=== PATIENT | female | born 1965 | race Caucasian/White ===

== ENCOUNTER 2018-06-05 07:37 | Outpatient (RCR) | payer BC, SELFPAY ==
--- NOTE | 2018-06-05 08:41 | PTTR_ITS ---
DATE: 06/05/18 SUBJECTIVE: Reny reports overall 50% improvement in R shoulder dysfunction since start of PT. Positive changes include ability to mange her movement pattern with controlled movement and better posture, she overall feel stronger. However, she continues to experience a catch, when reaching to the side or behind her back quickly, and the catch generates pain for the remainder of her day. Always has pain relief with PT mobilization, but short lived. She has been compliantly completing a daily R shoulder girdle stabilization program, as instructed. OBJECTIVE: KX applied to all codes N/A Manual therapy: ([id number]). R GH joint mobilizations all planes, with focus of AP into quadrant, and IR end ranges, grade 4++ Scapulothoracic mobilization all planes, with focus of distraction and down rotation. Re-assessment R shoulder: Strength: Flexion 4+/5, abduction 4-4+/5, IR/ER 5/5 at 0* abduction, IR/ER at 45 * abduction 4+/5 no pain. Improved scapular stability with [facility] strength testing compared to prior sessions. ROM: Full, but with controlled, careful movement into abduction to reduce impingement. Special Testing: + Newman Alonzo and Neer Impingement testing. + lift off, secondary to impingement pain. Posture: Scoliotic curvature, contributing to R thoracic rotation, R thoracic convexity and disruption scapular thoracic alignment encouraging winging of R scapular and upward rotation. Direct treatment time: 20 minutes Total treatment time: 20 minutes Assessment: Reny has plateaued with PT treatment, for management of R shoulder pain. She began treatment on 03/27/18, with 2x/week visits, with some interruption of vacation, and then weaning her down to 1x/week as she improved. She presents with clinical signs and symptoms consistent with R subacromial impingement, with suspicion of bone spur pathology, negatively influenced by a scoliotic curvature, impairing arthrokinematics of the R GH joint. She has responded favorably to strengthening and mobilization, mainly due to improved awareness of her shoulder movement pattern, and intrinsic utilization. However, she continues to have a significant catch and pain with quick movements in an impingement movement pattern. She has reached her end point result with PT, and I feel that ortho consult would be informative for her, to determine if further intervention is appropriate. If she did not have a scoliotic deformity, her overall response to PT management, would have been more successful. Plan: Ortho consultation, with Dr. Dodge, at the [facility]. Hold from PT, utilizing HEP for strengthening. Will be seen on a PRN basis, shoulder exacerbation. Patient to call an update me on outcome of ortho consultation.
== END 2018-06-22 23:59 | disposition home or self-care (01) ==
LOC: PT 07:37
PROVIDERS: PCP Nurse Practitioner; Referring Provider Nurse Practitioner; Visit Provider Nurse Practitioner
DX: M25.511 Pain in right shoulder (principal); M41.9 Scoliosis, unspecified
CPT/HCPCS: 97140

== ENCOUNTER → 2018-06-15 01:23 | Outpatient (CLI) | payer BC, SELFPAY ==
--- NOTE | 2018-06-15 08:55 | DI.REPORT_ITS ---
SYMPTOM/DIAGNOSIS: ? TEAR OF RT ROTATOR CUFF M75.101, SUBACROMIAL IMPINGEMENT RIGHT SHOULDER MRI: 06/15 MRI examination of the shoulder was performed according to the usual protocol. Note is made of moderate hypertrophic degenerative changes of the acromioclavicular joint. There is a small quantity of fluid in the subacromial bursa. A small acromial inferior spur appears to be present. There is abnormal signal in supraspinatus tendon consistent with tendinosis with a question of small distal tendon partial thickness tear. No full thickness tear or retraction seen. Infraspinatus tendo also shows some abnormal signal consistent with tendinosis without evidence of a tear. Remainder of the rotator cuff appears intact. Biceps tendon and anchor are unremarkable. Glenoid labrum appears grossly intact as visualized. CONCLUSION: Findings consistent with supraspinatus and infraspinatus tendinosis , possible small partial thickness supraspinatus tendon tear noted.
== END ==
PROVIDERS: PCP Nurse Practitioner; Visit Provider Specialist
DX: M75.41 Impingement syndrome of right shoulder (principal); M75.81 Other shoulder lesions, right shoulder
CPT/HCPCS: 73221

== ENCOUNTER 2018-08-06 17:24 | Emergency (ER) | payer BC, SELFPAY ==
[2018-08-06 17:35] VITALS: BP 135/80; PULSE 70; RESP 16; TEMP 37; O2SAT 100
[2018-08-06] MEDS: Ketorolac 30 MG/ML VIAL IM (18:44)
[2018-08-06] MEDS: Dexamethasone 4 MG TAB 10 MG PO (18:44)
[2018-08-06] MEDS: Lidocaine 5% Patch 1 PATCH TP (18:45)
--- NOTE | 2018-08-06 19:01 | W.ED.GENAD ---
Discharge Plan Disposition Patient Disposition: HOME Condition: Good Discharge Details Chief Complaint: Orthopedic Clinical Impression: Acute pain of right shoulder Primary Care Provider: Erika Adams ED Provider: Teto Allen Home Meds and New Rx's Prescriptions: New acetaminophen [Mapap Extra Strength] 500 MG tablet 1,000 mg PO Q6H 5 Days Qty: 60 RF: 0 ibuprofen [Motrin IB] 200 MG tablet 800 mg PO Q6H 5 Days Qty: 80 RF: 0 lidocaine [Lidoderm] 1 PATCH patch 1 patch Topical Q24H Qty: 4 RF: 0 No Action acetaminophen [Tylenol Arthritis Pain] 650 mg Tablet Extended Release 650 mg PO PRN PRNRF: 0 ibuprofen 200 mg Tablet 400 mg PO PRN PRNRF: 0 Discharge Instructions Instructions: Shoulder Pain (ED) Additional Instructions: Please follow-up with your orthopedic surgeon as soon as possible for reassessment. If you notice any worsening of your symptoms, or any new symptoms such as vomiting, diarrhea, fever, chills, shortness of breath, chest pain, numbness, weakness, or fainting , please return immediately to the emergency department for reevaluation. Please follow up with your primary care provider as soon as possible for reassessment and reevaluation. As always, it was a pleasure participating in your medical care today. Referrals: Erika Adams [Primary Care Provider] - Discharge Data Discharge Date/Time-TO BE ENTERED AT DEPARTURE: 08/06/18 19:39 Medical Decision Making This is a 52-year-old female with no significant past medical history except for multiple orthopedic components causing pain in her right shoulder including bone spurs, arthritis, and a previous rotator cuff injury. She has had a recent MRI. She does have orthopedic surgery with Dr. Dodge coming up later this month. Over the last few days she has been in positions that has seemed to worsen her symptomatology. She presents tonight for control of the pain. Physical exam demonstrates no significant abnormalities tenderness pretty much all movements. Some minimal reproducible tenderness near the head of the humerus itself, but no pain out of portion suggesting fracture. No laxity, no signs of deformity. In no history suggestive of any acute fracture. The patient's pain is certainly chronic in nature, with a small exacerbation. There appears to be no red flags of recent injury, or change in the nature of her pain just the severity. I did discuss with the patient potential imaging however I feel that this is unnecessary and unwarranted at this time. Family does not want any additional imaging at this time. We did give the patient Toradol, Lidoderm patch, and Tylenol. She has had some improvement of her symptoms with this. EKG was ordered and shows no evidence of acute STEMI or abnormality. Likelihood of a cardiac etiology for symptoms is extremely low. With mild improvement of her symptoms, no acute component in her history, and no red flags on exam or history I do feel that she can be safely discharged home with close follow-up with her orthopedic surgeon Dr. Dodge in [place], as well as on new regiment of Lidoderm patches, maximum dose Tylenol and Motrin. We discussed red flags which return the patient family understand. I have extensively reviewed the treatment plan and discharge instructions with the patient. I have addressed all patient concerns at this time. The patient was made aware of what symptoms to monitor for that would warrant a return to the emergency department. Discussed the plan with the patient, they demonstrate verbal understanding and agreement with our assessment and plan at this time. 18: 36 Sinus bradycardia, rate 58, intervals normal, no significant ST elevations or depressions, RSR in V1 and V2. No Q waves, no T wave inversions. Normal EKG HPI General Date/Time Provider Initiated Documentation: 08/06/18 17:50. HPI Narrative: This is a 52-year-old female with a past medical history of right shoulder orthopedic problems who is being seen and followed by the [facility] in [place]. She has a history of bone spurs, arthritis and rotator cuff injury in this right shoulder. She recently had an MRI, is scheduled to have arthroscopic surgery later this month. The patient states that she had a flight on , and was in the seated position for quite some time, and then over the last few days she has been at her desk typing a lot and has had notable worsening of pain in her right shoulder. She has been taking Tylenol and Motrin but this is apparently improved her symptoms. She has no associated numbness, tingling, weakness, swelling, lower arm pain forearm pain or hand pain. She denies any chest pain or shortness of breath. Symptoms made worse with movement in any direction. His symptoms are improved by nothing. She denies any other complaints at this time. Denies PE risk factors such as recent long car rides, immobilization, recent surgery, prior history of DVT or PE, family history of PE or DVT, morbid obesity, exogenous estrogen and smoking, hemoptysis, history of cancer. She denies any recent surgeries. She denies any IV or illicit drug use. Related Data Home Medications Medication Instructions Recorded Confirmed acetaminophen [Mapap Extra 1,000 mg PO Q6H 5 Days #60 tab 08/06/18 Strength] acetaminophen [Tylenol Arthritis 650 mg PO PRN PRN 08/06/18 08/06/18 Pain] ibuprofen 400 mg PO PRN PRN 08/06/18 08/06/18 ibuprofen [Motrin Ib] 800 mg PO Q6H 5 Days #80 tab 08/06/18 lidocaine [Lidoderm] 1 patch TOPICAL Q24H #4 patch 08/06/18 Previous Rx's Medication Instructions Recorded acetaminophen [Mapap Extra 1,000 mg PO Q6H 5 Days #60 tab 08/06/18 Strength] ibuprofen [Motrin Ib] 800 mg PO Q6H 5 Days #80 tab 08/06/18 lidocaine [Lidoderm] 1 patch TOPICAL Q24H #4 patch 08/06/18 Allergies Allergy/AdvReac Type Severity Reaction Status Date / Time Sulfa (Sulfonamide AdvReac Intermediate Diarrhea Unverified 08/06/18 17:40 Antibiotics) General Stated Complaint: Orthopedic DARREN: 3 Review of Systems Review of Systems All systems reviewed & are unremarkable except as noted in HPI and below PFSH Social History Smoking/Tobacco Use Status: Never Exam Narrative Exam Narrative: 1.Const: Well-nourished, Well-developed, appearing stated age 2.Eyes: PERRL, no conjunctival injection, and symmetrical lids. 3.ENT: Atraumatic external nose and ears. Moist MM. Neck: Symmetric, trachea midline, No thyromegaly. 4.CVS: +S1/S2, No murmurs or gallops. Peripheral pulses 2+ and equal in all extremities. Brisk capillary refill in all extremities. 5.RESP: Unlabored respiratory effort. Clear to auscultation bilaterally. No wheezes rales or rhonchi 6.GI: Soft, Nontender/Nondistended, No hepatosplenomegaly. No guarding or rebound. 7.MSK: Normocephalic/Atraumatic, Extremities w/o deformity. No cyanosis or clubbing. The patient's right shoulder demonstrates normal movement in all directions however pain is worsened with every single direction of movement including abduction, abduction, internal and external rotation, flexion extension sensation is intact, normal muscle strength. Some movements are limited secondary to pain however strength is 5 out of 5 in all components of the no signs of swelling, edema, or signs of clot. No significant crepitus. No signs of deformity or dislocation. 8.Skin: Warm, Dry. No rashes or lesions. 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 Sensation grossly intact, no focal neurologic deficits. 10.Psych: (AAO) x3. Appropriate mood and affect Course Vital Signs Temperature 37 C 08/06/18 17:35 Pulse 70 08/06/18 17:35 Respiratory Rate 16 08/06/18 17:35 Blood Pressure 135/80 08/06/18 17:35 Pulse Oximetry 100 08/06/18 17:35 Temperature 37 C 08/06/18 17:35 Temperature Source Temporal Artery Scan 08/06/18 17:35 Pulse 70 08/06/18 17:35 Respiratory Rate 16 08/06/18 17:35 Respiratory Effort 08/06/18 17:46 Blood Pressure 135/80 08/06/18 17:35 Blood Pressure Position Sitting 08/06/18 17:35 Pulse Oximetry 100 08/06/18 17:35 Oxygen Delivery Method Room Air 08/06/18 17:35 Oxygen Flow Rate 0 08/06/18 17:35 Pain Level 10 08/06/18 17:47
== END 2018-08-06 19:39 | disposition home or self-care (01) ==
PROVIDERS: Emergency Provider Student in an Organized Health Care Education/Training Program; PCP Nurse Practitioner
DX: M25.511 Pain in right shoulder (principal)
CPT/HCPCS: 93005; 96372; 99284; 93010; 99283; J1885; J8540

== ENCOUNTER 2019-03-08 01:17 | Outpatient (CLI) | payer BC, SELFPAY ==
--- NOTE | 2019-03-08 07:55 | DI.MAMMO_ITS ---
SYMPTOM/DIAGNOSIS: SCREENING, Z12.39 MAMMOGRAMS: Mammograms were interpreted according to the usual protocol including computer analysis with CAD system, tomosynthesis and C view imaging. Comparison is made with exams from [id number]. The breasts are composed of heterogeneously dense fibroglandular tissue, breast density, category C. No suspicious masses or suspicious microcalcifications are seen. There has been no significant change. IMPRESSION: Category 1, negative mammogram. Yearly screening mammography is recommended. [facility] ASSESSMENT OF FINDINGS: Negative. Category 1. Patient will receive a letter notifying them of these results. Bi-RADS category C. The breasts are heterogeneously dense, which may obscure small masses.
== END 2019-03-08 01:37 ==
PROVIDERS: PCP Nurse Practitioner; Visit Provider Nurse Practitioner
DX: Z12.31 Encounter for screening mammogram for malignant neoplasm of breast (principal)
CPT/HCPCS: 77063; 77067

== ENCOUNTER 2020-08-26 08:26 | Outpatient (REF) | payer BC, SELFPAY ==
[2020-08-26 19:59] LABS: ALT 29 U/L (14-59); AST 20 U/L (15-37); Albumin 3.9 g/dL (3.4-5.0); Alkaline Phosphatase 60 U/L (46-116); Anion Gap 8.1 mmol/L (3-11); BUN 9 mg/dL (7-18); CO2 27.9 mmol/L (21.0-32.0); CREATININE 0.82 mg/dL (0.55-1.02); Calcium 8.7 mg/dL (8.5-10.1); Calculated LDL 84 mg/dL (<100); Chloride 107 mmol/L (98-107); Cholesterol 183 mg/dL (<200); Glucose 89 mg/dL (74-106); HDL Cholesterol 91 mg/dL (40-60); Potassium 4.2 mmol/L (3.5-5.1); Sodium 143 mmol/L (136-145); TSH (W/Ref FT4) 1.38 uIU/mL (0.36-3.74); Total Protein 6.7 g/dL (6.4-8.2); Triglyceride 40 mg/dL (<150)
== END 2020-08-26 08:46 ==
LOC: NCHCN 08:26
PROVIDERS: PCP Nurse Practitioner; Visit Provider Nurse Practitioner
DX: Z00.00 Encounter for general adult medical examination without abnormal findings (principal)
CPT/HCPCS: 80053; 80061; 84443

== ENCOUNTER 2020-09-21 01:20 | Outpatient (CLI) | payer BC, SELFPAY ==
--- NOTE | 2020-09-21 | DI.MAMMO_ITS ---
EXAM: MAMMO SCREENING CLINICAL HISTORY: SCREENING, Z12.39. TECHNIQUE: Bilateral full field digital CC and MLO mammographic images were obtained with 3D tomosyn thesis and utilizing computer aided detection (CAD). COMPARISON: Prior mammograms dating back to 2013, the most recent being February 2009. Prior breast ultr asound January 2009 was reviewed. FINDINGS: Fibroglandular tissue is dense, decreasing sensitivity of the mammogram for finding hidden underlying lesions. There are no new dominant masses nor malignant appearing microcalcification groups. A group of microc alcifications posteriorly in the right breast is unchanged from prior studies. There are no new becki gnant appearing microcalcification groups. There is no new architectural distortion nor skin thicken ing-retraction. IMPRESSION: Dense bilateral fibroglandular tissue. Stable benign findings. Given the density of this patient's fibroglandular tissue and significant family history I feel would be prudent to perform screening maría ateral breast ultrasound. BI-RADS Category 2 - Benign Findings Density: C Breast density Category C or D implies that the patient has dense breast tissue. Dense breast tissue can make it harder to find cancer on a mammogram. Dense breast tissue is also associated with an incr eased risk of breast cancer. This information about the result of the mammogram report was provided to the patient to raise their awareness. Use this report when you speak with the patient about their risks for breast cancer, which includes their family history. At that time, you may recommend additional screening tests (Ultrasoun d or MRI) as these tests may add significant information. A negative radiographic report should not delay biopsy if a dominant or clinically suspicious mass is present. Up to ten percent of cancers are not identified on mammography. A negative report may reinforce clinical impression. Adenosis and dense breasts may obscure an underlying neoplasm. False positive reports average 6 to 10%. Patient will receive a letter notifying them of these results.
== END 2020-09-21 01:40 ==
PROVIDERS: PCP Nurse Practitioner; Visit Provider Nurse Practitioner
DX: Z12.31 Encounter for screening mammogram for malignant neoplasm of breast (principal); R92.0 Mammographic microcalcification found on diagnostic imaging of breast; Z80.3 Family history of malignant neoplasm of breast
CPT/HCPCS: 77063; 77067

== ENCOUNTER 2020-09-30 02:02 | Outpatient (CLI) | payer BC, SELFPAY ==
--- NOTE | 2020-09-30 | DI.US_ITS ---
EXAM: US BREAST LT COMPLETE CLINICAL HISTORY: INCONCLUSIVE MAMMO,R92.2,FAMILY H/O BREAST CA,Z80.3,BREAST DENSITY C,SCREEN TECHNIQUE: Ultrasound left breast performed using standard protocol. COMPARISON: Recent mammogram was reviewed. FINDINGS: At the 2 o'clock position there is a wider than taller benign-appearing nodule measuring 6 x 3 millim eters which has appearance of a either lymph node or small conglomeration of microcysts. No ominous s olid lesions in all 4 quadrants. Benign lymph nodes are noted in the ipsilateral axilla. IMPRESSION: Benign 6 x 3 millimeter finding as described above at the 2 o'clock position. No ominous solid lesio ns. BI-RADS Category 2 - Benign Findings DATA REPOSITORY:
--- NOTE | 2020-09-30 | DI.US_ITS ---
EXAM: US BREAST RT COMPLETE CLINICAL HISTORY: INCONCLUSIVE MAMMO,R92.2,FAMILY H/O BREAST CA,Z80.3,BREAST DENSITY C,SCREEN TECHNIQUE: Ultrasound right breast performed using standard protocol. COMPARISON: Recent mammogram was reviewed FINDINGS: There is a 5 millimeter microcyst in the retroareolar region. At the 10 o'clock position there is a 4 x 3 millimeter microcysts. No solid lesions seen in all 4 quadrants. No significant axillary darnell opathy.. IMPRESSION: Benign ultrasound findings as described above BI-RADS Category 2 - Benign Findings DATA REPOSITORY:
== END 2020-09-30 02:22 ==
PROVIDERS: PCP Nurse Practitioner; Visit Provider Nurse Practitioner
DX: R92.2 Inconclusive mammogram (principal); N63.21 Unspecified lump in the left breast, upper outer quadrant; Z80.3 Family history of malignant neoplasm of breast; N60.01 Solitary cyst of right breast
CPT/HCPCS: 76642

== ENCOUNTER 2021-09-29 01:06 | Outpatient (CLI) | payer BC, SELFPAY ==
--- NOTE | 2021-09-29 08:51 | DI.MAMMO_ITS ---
Exam(s) MAMMO SCREENING EXAM: MAMMO SCREENING CLINICAL HISTORY: SCREENING FOR BREAST CANCER Z12.39 TECHNIQUE: Bilateral full field digital CC and MLO mammographic images were obtained with 3D tomosyn thesis and utilizing computer aided detection (CAD). COMPARISON: Available for comparison. FINDINGS: Masses/Architectural Distortion: None seen. Microcalcifications: No suspicious pleomorphic-type are seen. Skin Thickening/Nipple Retraction: None. IMPRESSION: 1. No significant interval change with no specific features of malignancy noted. 2. Unless there is more urgent need, screening mammography is recommended, as per [employer] guidelines. BI-RADS Category 1 - Negative Breast Density - Category C - Heterogeneously dense Breast density category C or D implies that the patient has dense breast tissue. Dense breast tissue is very common and is not abnormal but dense breast tissue can make it harder to find cancer on a ma mmogram. Also, dense breast tissue may increase their breast cancer risk. This information about the result of the mammogram report was provided to the patient to raise their awareness. Use this report when you speak with the patient about their risks for breast cancer, which includes their family hist ory. At that time, you may recommend for more screening tests (Ultrasound or MRI) as they might be us eful based on their risk. A negative radiographic report should not delay biopsy if a dominant or clinically suspicious mass is present. Up to ten percent of cancers are not identified on mammography. A negative report may reinforce clinical impression. Adenosis and dense breasts may obscure an underlying neoplasm. False positive reports average 6 to 10%. Patient will receive a letter notifying them of these results.
== END 2021-09-29 01:26 ==
PROVIDERS: PCP Nurse Practitioner; Visit Provider Nurse Practitioner
DX: Z12.31 Encounter for screening mammogram for malignant neoplasm of breast (principal); R92.8 Other abnormal and inconclusive findings on diagnostic imaging of breast
CPT/HCPCS: 77063; 77067

== ENCOUNTER 2021-10-19 11:54 | Observation (INO) | payer BC, SELFPAY ==
[2021-10-19] VITALS (23 sets, daily range): BP systolic 96–114; BP diastolic 57–70; PULSE 76–105; RESP 15–22; TEMP 36.7–39; O2SAT 95–100; BMI 19.0
--- NOTE | 2021-10-19 12:15 | DI.CT_ITS ---
Exam(s) CT ABDOMEN PELVIS W EXAM: CT ABDOMEN PELVIS W INDICATION: RLQ pain, 14 cbc. COMPARISON: CT UPPER ABD WITH CONTRAST (P) from 12/03/2008 TECHNIQUE: FINDINGS: CT examination of the abdomen and pelvis was performed with a bolus infusion of 100 cc of Omnipaque 3 50. Images obtained through the lung bases are unremarkable. The liver is unremarkable in appearance. Gallbladder and bile ducts are CT normal. Pancreas appears normal. Spleen is unremarkable in appearance. Adrenals appear normal. The kidneys are unremarkable with no evidence of hydronephrosis, nephrolithiasis, or renal mass.. Ur inary bladder unremarkable. Abdominal aorta is of normal diameter and no major vascular abnormality is seen. No abdominal wall hernia. No abdominal or pelvic adenopathy. 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 The appendix has a markedly thickened wall and there is marked periappendiceal fat edema and free flu id. No gross perforation but the findings are consistent with an acute appendicitis. Note is also m juan luis of free fluid in the pelvis posteriorly. There are multiple loops of small bowel with thickened wall in the mid abdomen.. No evidence of diverticulitis or bowel obstruction. IMPRESSION: The appearance is consistent with acute appendicitis. No gross abscess or perforation at this time. RADIATION DOSE DELIVERED: 549.58mGy.cm Total DLP 549.58mGy.cm Total DLP 11.68mGy CTDIvol RADIATION OPTIMIZATION: All CT scans at this facility use at least one of these dose optimization te chniques: automated exposure control; mA and/or kV adjustment per patient size (includes targeted exa ms where dose is matched to clinical indication); or iterative reconstruction.
[2021-10-19 12:16] LABS: Abs Immature Grans 0.09 10^3/uL (0.0-0.06); Absolute Basophil Count 0.04 10^3/uL (0.0-0.2); Absolute Eosinophil Count 0.04 10^3/uL (0.0-0.7); Absolute Lymphocyte Count 1.77 10^3/uL (1.2-3.4); Absolute Monocyte Count 0.59 10^3/uL (0.1-0.8); Absolute Neutrophil Count 11.54 10^3/uL (1.2-6.7); Basophils % 0.3; Eosinophils % 0.3; HGB 13.5 g/dL (11.2-15.7); Immature Grans % 0.6; Lymphocytes % 12.6; MCH 29.7 pg (27.0-33.0); MCHC 32.9 % (32.0-36.0); MCV 90.3 fL (80-95); MPV 10.3 fL (8.0-11.0); Monocytes % 4.2; Nucleated RBC 0 %; Platelet Count 299 10^3/uL (130-400); RBC 4.54 10^6/uL (3.93-5.22); RDW 13.1 % (11.7-14.6); RDW-SD 42.9 fL; WBC 14.07 10^3/uL (4.4-10.8)
[2021-10-19 12:18] LABS: Bilirubin Negative (Negative); Blood Trace-intact (Negative); Clarity Clear (Clear); Glucose Negative (Negative); Ketones Negative (Negative); Leukocyte Esterase Trace (Negative); Nitrite Negative (Negative); Urobilinogen 0.2 EU/dL (Up TO 0.2); pH 7.5 (5-8)
[2021-10-19 12:29] LABS: ALT 30 U/L (14-59); AST 23 U/L (15-37); Albumin 3.9 g/dL (3.4-5.0); Alkaline Phosphatase 89 U/L (46-116); Anion Gap 8.2 mmol/L (3-11); BUN 11 mg/dL (7-18); CO2 27.8 mmol/L (21.0-32.0); Calcium 8.7 mg/dL (8.5-10.1); Chloride 101 mmol/L (98-107); Glucose 106 mg/dL (74-106); Lipase 73 U/L (73-393); Potassium 3.5 mmol/L (3.5-5.1); Sodium 137 mmol/L (136-145); Total Protein 7.5 g/dL (6.4-8.2)
--- NOTE | 2021-10-19 12:30 | W.ED.GENAD ---
Discharge Plan Disposition Patient Disposition: [facility] INPATIENT Condition: Serious Discharge Details Chief Complaint: Abd Prob Clinical Impression: Acute appendicitis Primary Care Provider: Erika Adams ED Provider: Ray Blanca Home Meds and New Rx's Prescriptions: No Action Adult 50 Plus Probiotic 4 billion cell capsule 4,000 mmu cells PO DAILY RF: 0 Neuriva Plus 0.85 mg-200 mcg-1.2 mcg tablet,chewable PO RF: 0 polyethylene glycol 3350 17 gram/dose powder 238 g PO ONCE Qty: 238 RF: 0 bisacodyl [Dulcolax (bisacodyl)] 5 mg tablet,delayed release (DR/EC) 5 mg PO ONCE Qty: 4 RF: 0 bisacodyl [Dulcolax (bisacodyl)] 5 mg tablet,delayed release (DR/EC) 5 mg PO ONCE Qty: 4 RF: 0 Metamucil 3.4 gram/5.4 gram powder 1 tsp PO DAILY RF: 0 multivitamin [Daily Multi-Vitamin] Tablet 1 tab PO DAILY RF: 0 Medical Decision Making 55-year-old female presents with right lower quadrant pain that began yesterday evening. Examination is certainly concerning for appendicitis but cannot rule out UTI, pyelonephritis, ovarian cyst, torsion, etc. Plan is to obtain IV access, give IV fluid, she declines any pain medication or antiemetics. Will likely need to obtain imaging whether this be ultrasound or CT White blood cell count of 14.07, total bili of 2.0 LFTs otherwise unremarkable, lipase 73, urinalysis with trace blood, trace leukoesterase, 3-5 red and white cells. Given the right lower quadrant discomfort with leukocytosis will obtain CT of abdomen and pelvis for concern of appendicitis CT positive for uncomplicated appendicitis. Made patient aware of findings. She is now requesting an antiemetic, will provide 1 g of ertapenem as well as 4 mg IV Zofran. Case discussed with Dr. Rodrigez who personally evaluated the patient in the ER. Will admit the patient to her services This documentation was generated using Voiceitation system, please disregard any oddities of phrase or misspellings. Medical Records Medical records reviewed: Yes I reviewed the patient's medical records. Imaging Data Radiologic Study: Attestation: I personally reviewed and interpreted this imaging study as follows: Imaging: X-Ray Radiologist's impression: Exam(s) CT ABDOMEN PELVIS W EXAM: CT ABDOMEN PELVIS W INDICATION: RLQ pain, 14 cbc. COMPARISON: CT UPPER ABD WITH CONTRAST (P) from 12/03/2008 TECHNIQUE: FINDINGS: CT examination of the abdomen and pelvis was performed with a bolus infusion of 100 cc of Omnipaque 350. Images obtained through the lung bases are unremarkable. The liver is unremarkable in appearance. Gallbladder and bile ducts are CT normal. Pancreas appears normal. Spleen is unremarkable in appearance. Adrenals appear normal. The kidneys are unremarkable with no evidence of hydronephrosis, nephrolithiasis, or renal mass.. Urinary bladder unremarkable. Abdominal aorta is of normal diameter and no major vascular abnormality is seen. No abdominal wall hernia. No abdominal or pelvic adenopathy. SULFUR BURNER structures appear intact. The appendix has a markedly thickened wall and there is marked periappendiceal fat edema and free fluid. No gross perforation but the findings are consistent with an acute appendicitis. Note is also made of free fluid in the pelvis posteriorly. There are multiple loops of small bowel with thickened wall in the mid abdomen.. No evidence of diverticulitis or bowel obstruction. IMPRESSION: The appearance is consistent with acute appendicitis. No gross abscess or perforation at this time. Lab Data Lab results reviewed: Yes I reviewed the patient's lab results. Labs: Laboratory Tests Range/Units 10/19/21 10/19/21 10/19/21 12:02 12:02 12:10 WBC (4.4-10.8) 10^3/uL 14.07 H RBC (3.93-5.22) 10^6/uL 4.54 Hgb (11.2-15.7) g/dL 13.5 Hct (36.0-46.0) % 41.0 MCV (80-95) fL 90.3 MCH (27.0-33.0) pg 29.7 MCHC (32.0-36.0) % 32.9 RDW (11.7-14.6) % 13.1 Plt Count (130-400) 10^3/uL 299 MPV (8.0-11.0) fL 10.3 Immature Gran % 0.6 Neutrophils % 82.0 Lymphocytes % 12.6 Monocytes % 4.2 Eosinophils % 0.3 Basophils % 0.3 Nucleated RBC % % 0 Absolute Neutrophils (1.2-6.7) 10^3/uL 11.54 H Absolute Lymphocytes (1.2-3.4) 10^3/uL 1.77 Absolute Monocytes (0.1-0.8) 10^3/uL 0.59 Absolute Eosinophils (0.0-0.7) 10^3/uL 0.04 Absolute Basophils (0.0-0.2) 10^3/uL 0.04 Sodium (136-145) mmol/L 137 Potassium (3.5-5.1) mmol/L 3.5 Chloride (98-107) mmol/L 101 Carbon Dioxide (21.0-32.0) mmol/L 27.8 Anion Gap (3-11) mmol/L 8.2 BUN (7-18) mg/dL 11 Creatinine (0.55-1.02) mg/dL 1.0 Estimated GFR/1.73 m2 (mL/min/1.73m2) 58.00 Glucose (74-106) mg/dL 106 Calcium (8.5-10.1) mg/dL 8.7 Total Bilirubin (0.2-1.0) mg/dL 2.0 H AST (15-37) U/L 23 ALT (14-59) U/L 30 Alkaline Phosphatase (46-116) U/L 89 Total Protein (6.4-8.2) g/dL 7.5 Albumin (3.4-5.0) g/dL 3.9 Lipase (73-393) U/L 73 Urine Color (Yellow) Yellow Urine Clarity (Clear) Clear Urine pH (5-8) 7.5 Ur Specific [place] (1.005-1.025) 1.020 Urine Protein (Negative) mg/dL Negative Urine Ketones (Negative) mg/dL Negative Urine Blood (Negative) Trace-intact H Urine Nitrite (Negative) Negative Urine Bilirubin (Negative) Negative Urine Urobilinogen (Up TO 0.2) EU/dL 0.2 Ur Leukocyte Esterase (Negative) Trace H Urine RBC (0-2) HPF 3-5 H Urine WBC (0-5) HPF 3-5 Ur Epithelial Cells (Negative) HPF Few Urine Crystals (Negative) HPF Negative Urine Bacteria (Negative) HPF Few Urine Casts (Negative) LPF Negative Urine Mucus (Negative) Trace Ur Culture Indicated? No Urine Glucose (Negative) mg/dL Negative HPI General Mode of arrival: ambulatory. Date/Time Provider Initiated Documentation: 10/19/21 12:00. Limitations to Documentation: no limitations. Information obtained by: patient. HPI Narrative: This is a 55-year-old female, past medical history of constipation, hemorrhoids, presents to the ER reporting a right lower quadrant pain that began yesterday evening, constant, aching, sharp at times, moderate currently. She denies any recent illness or travel. Denies bad food exposure. States that she had a piece of toast this morning. Denies any fever, nausea, vomiting, chest pain, shortness of breath, back pain, dysuria, hematuria, vaginal bleeding or discharge, diarrhea. She has not taken any medications for her symptoms. Reports history of ovarian cyst that did feel somewhat similar to this. Reports last menstrual cycle was in July Related Data Home Medications Medication Instructions Recorded Confirmed multivitamin 1 tab PO DAILY 10/02/20 10/19/21 psyllium husk 3.4 gram/5.4 gram 1 tsp PO DAILY 10/02/20 10/19/21 oral powder B6 0.85 mg-folic 200 tab PO 10/04/21 10/05/21 [id number] oral chewable tablet bisacodyl 5 mg tablet,delayed 5 mg PO ONCE #4 tab 10/04/21 10/05/21 release bisacodyl 5 mg tablet,delayed 5 mg PO ONCE #4 tab 10/04/21 10/05/21 release lactobacillus combination no.9 4 4,000 mmu cells PO DAILY 10/04/21 10/19/21 billion cell capsule polyethylene glycol 3350 17 238 g PO ONCE #238 g 10/04/21 10/05/21 gram/dose oral powder Previous Rx's Medication Instructions Recorded bisacodyl 5 mg tablet,delayed 5 mg PO ONCE #4 tab 10/04/21 release bisacodyl 5 mg tablet,delayed 5 mg PO ONCE #4 tab 10/04/21 release polyethylene glycol 3350 17 238 g PO ONCE #238 g 10/04/21 gram/dose oral powder Allergies Allergy/AdvReac Type Severity Reaction Status Date / Time Penicillins Allergy Mild Verified 10/19/21 12:02 Sulfa (Sulfonamide AdvReac Intermediate Diarrhea Unverified 10/19/21 12:02 Antibiotics) General Stated Complaint: Abd Prob DARREN: 3 Review of Systems Constitutional Constitutional: Denies fever(s) and Denies weakness Cardiovascular Cardiovascular: Denies chest pain and Denies dyspnea Respiratory Respiratory: Denies cough and Denies dyspnea Gastrointestinal Gastrointestinal: Reports abdominal pain, Denies nausea and Denies vomiting Genitourinary Genitourinary: Denies hematuria and Denies dysuria Musculoskeletal Musculoskeletal: Denies back pain Integumentary/Breasts Skin/Breast: Denies rash Neurologic Neurologic: Denies weakness PFSH All Active Problems (Updated 10/19/21 @ 13:39 by GUMARO Mccann) Acute appendicitis (Acute) Medical History Constipation Hemorrhoids Impingement syndrome of right shoulder Scoliosis Social History Smoking/Tobacco Use Status: Never Smoking risk assessment performed?: Yes Alcohol Intake: current Alcohol Intake frequency: a few times a week Drug use: Occasionally Substance use type: marijuana Do you feel safe at home: Yes Do you feel safe in your relationship?: Yes Exam Const General: cooperative, healthy appearing, comfortable and no acute distress Orientation: alert and awake HENPR Head: normal to inspection, normocephalic and atraumatic Eyes General: appearance normal, both eyes and all related structures Conjunctivae: conjunctivae normal Neck Neck: normal visual inspection, trachea midline and supple Resp Effort & Inspection: normal respiratory effort and able to speak in complete sentences Auscultation: clear to auscultation bilaterally Cardio Rate: regular rate Rhythm: regular rhythm GI Inspection: normal to inspection Palpation: soft, firm, guarding in the RLQ, no pulsatile masses and tender at McBurney's point and with rebound tenderness Auscultation: normal bowel sounds Back/Spine/Pelvis Back: no CVA tenderness and No back tenderness Skin General skin exam: no rashes or lesions noted Neuro General: patient alert, patient awake, moves all extremities and no focal motor deficits Cognition: normal cognition Speech: speech normal Sensory Exam: no sensory deficits noted Psych Appearance: grossly normal Mental Status: mental status grossly normal Course Vital Signs Vital signs: Vital Signs Temperature 36.9 C 10/19/21 11:59 Pulse 91 H 10/19/21 11:59 Respiratory Rate 16 10/19/21 11:59 Blood Pressure 98/65 L 10/19/21 11:59 Pulse Oximetry 100 10/19/21 11:59 Temperature 36.9 C 10/19/21 11:59 Temperature Source Temporal Artery Scan 10/19/21 11:59 Pulse 91 H 10/19/21 11:59 Respiratory Rate 16 10/19/21 11:59 Respiratory Effort Non-Labored 10/19/21 12:03 Blood Pressure 98/65 L 10/19/21 11:59 Blood Pressure Position Sitting 10/19/21 11:59 Pulse Oximetry 100 10/19/21 11:59 Oxygen Delivery Method Room Air 10/19/21 11:59 Oxygen Flow Rate 0 10/19/21 11:59 Lab/Test Results Lab/Test Results: Laboratory Tests Range/Units 10/19/21 12:02 WBC (4.4-10.8) 10^3/uL 14.07 H RBC (3.93-5.22) 10^6/uL 4.54 Hgb (11.2-15.7) g/dL 13.5 Hct (36.0-46.0) % 41.0 MCV (80-95) fL 90.3 MCH (27.0-33.0) pg 29.7 MCHC (32.0-36.0) % 32.9 RDW (11.7-14.6) % 13.1 Plt Count (130-400) 10^3/uL 299 MPV (8.0-11.0) fL 10.3 Immature Gran % 0.6 Neutrophils % 82.0 Lymphocytes % 12.6 Monocytes % 4.2 Eosinophils % 0.3 Basophils % 0.3 Nucleated RBC % % 0 Absolute Neutrophils (1.2-6.7) 10^3/uL 11.54 H Absolute Lymphocytes (1.2-3.4) 10^3/uL 1.77 Absolute Monocytes (0.1-0.8) 10^3/uL 0.59 Absolute Eosinophils (0.0-0.7) 10^3/uL 0.04 Absolute Basophils (0.0-0.2) 10^3/uL 0.04 POC- Test(urine) Negative Critical Care Time Critical Care Time Critical Care Time: Yes Total Critical Care Time: 35 Attestation: Upon my evaluation, this patient had a high probability of clinically significant, life-threatening deterioration due to their current medical conditions, which required my direct attention, intervention, and personal management. I have personally provided greater than 30 minutes of critical care time exclusive of the time spend on separately billable procedures. Time includes obtaining a history, examining the patient, pulse oximetry, review of laboratory data, radiology results, discussion with consultants, arranging urgent treatment with development of a management plan, evaluation of patient's response to treatment, and monitoring for potential decompensation. Interventions were performed as documented above.
[2021-10-19 12:33] LABS: Bacteria Few HPF (Negative); C & S Indicated? No; Casts Negative LPF (Negative); Crystals Negative HPF (Negative); Epithelial Cells Few HPF (Negative); Mucus Trace (Negative)
[2021-10-19] MEDS: Ondansetron 4 MG/2 ML VIAL (13:30)
[2021-10-19] MEDS: Normal Saline 1,000 ML 1000 ML IV (13:31)
[2021-10-19 13:45] LABS: Source Nasal/Nares
--- NOTE | 2021-10-19 13:49 | HPE_ITS ---
Assessment and Plan Assessment and plan (1) Acute appendicitis: Status: Acute Assessment and plan: Mrs Smith is a pleasant 55 year old female with RLQ pain since yesterday evening. CT scan is consistent with acute appendicitis. Risks, benefits and complications have been reviewed. Complications include but are not limited to bleeding, infection, injury to the intestine, leaking from the staple line and adverse reaction to the medications. Questions were entertained and answered to her satisfaction and she wished to proceed. Proceed with Laparoscopic Appendectomy Qualifiers: Acute appendicitis type: with localized peritonitis Appendicitis gangrene presence: without gangrene Appendicitis perforation presence: without perforation Appendicitis abscess presence: without abscess Qualified Code(s): K35.30 - Acute appendicitis with localized peritonitis, without perforation or gangrene (2) Postoperative nausea and vomiting: Status: Acute Assessment and plan: Will apply a scolpolamine patch and make anesthesia aware. History of Present Illness History of Present Illness Chief Complaint: RLQ pain Consults Consult date: 10/19/21 Requesting physician: Ray Blanca Narrative: Mrs Smith is a 55-year-old female, past medical history of constipation, hemorrhoids, presents to the ER reporting a right lower quadrant pain that began yesterday evening. She describes it as constant, aching, sharp at times, moderate currently. She denies any recent illness or travel. Denies bad food exposure. States that she had a piece of toast this morning. Denies any fever, nausea, vomiting, chest pain, shortness of breath, back pain, dysuria, hematuria, vaginal bleeding or discharge, diarrhea. She has not taken any medications for her symptoms. Reports history of ovarian cyst that did feel somewhat similar to this. Reports last menstrual cycle was in July. work-up in the ER included labs and CT scan. Labs reveal a mild leukocytosis. CT scan which I reviewed, revealed an enlarged appendix. No signs of rupture. Patient tells me that she gets severe nausea with anesthesia, even with propofol for a colonoscopy. She doesn't remember ever trying a scolpolamine patch. She denies chest pain or SOB. COVID test is pending at this time. Review of Systems Constitutional Constitutional: Denies fever(s), Denies headache(s) and Denies weight loss Eyes Eyes: Denies change in vision ENT Ears, Nose, Mouth, and Throat: Denies dysphagia and Denies headache(s) Cardiovascular Cardiovascular: Denies chest pain, Denies chest pain at rest, Denies irregular heart rhythm, Denies palpitations and Denies dyspnea Respiratory Respiratory: Denies cough and Denies dyspnea Gastrointestinal Gastrointestinal: Reports as per HPI, Denies dysphagia, Denies dyspepsia and Denies heartburn Genitourinary Genitourinary: Reports system reviewed and no additional complaints, except as documented Musculoskeletal Musculoskeletal: Reports system reviewed and no additional complaints, except as documented Integumentary/Breasts Skin/Breast: Reports system reviewed and no additional complaints, except as documented Neurologic Neurologic: Reports system reviewed and no additional complaints, except as documented and Denies headache(s) Psychiatric Psychiatric: Reports system reviewed and no additional complaints, except as documented Endocrine Endocrine: Reports system reviewed and no additional complaints, except as documented and Denies palpitations Hematologic/Lymphatic Hematologic/Lymphatic: Reports system reviewed and no additional complaints, except as documented PFSH All Active Problems (Updated 10/19/21 @ 14:07 by Soumya Rodrigez MD) Postoperative nausea and vomiting (Acute) Acute appendicitis (Acute) Medical History (Updated 10/19/21 @ 14:07 by Soumya Rodrigez MD) Constipation Hemorrhoids Impingement syndrome of right shoulder Scoliosis Surgical History (Updated 10/19/21 @ 13:59 by Soumya Rodrigez MD) S/P colonoscopy S/P laparoscopy diagnostic S/P removal of ovarian cyst S/P shoulder surgery Social History Smoking/Tobacco Use Status: Never Smoking risk assessment performed?: Yes Alcohol Intake: current Alcohol Intake frequency: a few times a week Drug use: Occasionally Substance use type: marijuana Do you feel safe at home: Yes Do you feel safe in your relationship?: Yes Meds Allergies and Home Medications Allergies Allergy/AdvReac Type Severity Reaction Status Date / Time Penicillins Allergy Mild Verified 10/19/21 12:02 Sulfa (Sulfonamide AdvReac Intermediate Diarrhea Unverified 10/19/21 12:02 Antibiotics) Home Medications Medication Instructions Recorded Confirmed Type multivitamin 1 tab PO DAILY 10/02/20 10/19/21 History psyllium husk 3.4 gram/5.4 gram 1 tsp PO DAILY 10/02/20 10/19/21 History oral powder B6 0.85 mg-folic 200 tab PO 10/04/21 10/05/21 History [id number] oral chewable tablet bisacodyl 5 mg tablet,delayed 5 mg PO ONCE #4 tab 10/04/21 10/05/21 Rx release bisacodyl 5 mg tablet,delayed 5 mg PO ONCE #4 tab 10/04/21 10/05/21 Rx release lactobacillus combination no.9 4 4,000 mmu cells PO DAILY 10/04/21 10/19/21 History billion cell capsule polyethylene glycol 3350 17 238 g PO ONCE #238 g 10/04/21 10/05/21 Rx gram/dose oral powder Exam Const General: cooperative Orientation: alert and oriented x3 HENMT Head: normocephalic and atraumatic Eyes Pupils: PERRL Resp Effort & Inspection: normal respiratory effort Auscultation: clear to auscultation bilaterally Cardio Rate: regular rate Rhythm: regular rhythm Heart Sounds: no gallops, no murmurs and no rubs GI Inspection: normal to inspection Palpation: soft, no hepatosplenomegaly and tender in the RLQ Results Labs Result diagrams: 10/19/21 12:02 10/19/21 12:02 Labs: Laboratory Results - last 24 hr 10/19/21 10/19/21 10/19/21 12:02 12:02 12:10 WBC 14.07 H RBC 4.54 Hgb 13.5 Hct 41.0 MCV 90.3 MCH 29.7 MCHC 32.9 RDW 13.1 Plt Count 299 MPV 10.3 Immature Gran % 0.6 Neutrophils % 82.0 Lymphocytes % 12.6 Monocytes % 4.2 Eosinophils % 0.3 Basophils % 0.3 Nucleated RBC % 0 Absolute Neutrophils 11.54 H Absolute Lymphocytes 1.77 Absolute Monocytes 0.59 Absolute Eosinophils 0.04 Absolute Basophils 0.04 Sodium 137 Potassium 3.5 Chloride 101 Carbon Dioxide 27.8 Anion Gap 8.2 BUN 11 Creatinine 1.0 Estimated GFR/1.73 m2 58.00 Glucose 106 Calcium 8.7 Total Bilirubin 2.0 H AST 23 ALT 30 Alkaline Phosphatase 89 Total Protein 7.5 Albumin 3.9 Lipase 73 Urine Color Yellow Urine Clarity Clear Urine pH 7.5 Ur Specific [place] 1.020 Urine Protein Negative Urine Ketones Negative Urine Blood Trace-intact H Urine Nitrite Negative Urine Bilirubin Negative Urine Urobilinogen 0.2 Ur Leukocyte Esterase Trace H Urine RBC 3-5 H Urine WBC 3-5 Ur Epithelial Cells Few Urine Crystals Negative Urine Bacteria Few Urine Casts Negative Urine Mucus Trace Ur Culture Indicated? No Urine Glucose Negative COVID-19 Source 10/19/21 13:40 WBC RBC Hgb Hct MCV MCH MCHC RDW Plt Count MPV Immature Gran % Neutrophils % Lymphocytes % Monocytes % Eosinophils % Basophils % Nucleated RBC % Absolute Neutrophils Absolute Lymphocytes Absolute Monocytes Absolute Eosinophils Absolute Basophils Sodium Potassium Chloride Carbon Dioxide Anion Gap BUN Creatinine Estimated GFR/1.73 m2 Glucose Calcium Total Bilirubin AST ALT Alkaline Phosphatase Total Protein Albumin Lipase Urine Color Urine Clarity Urine pH Ur Specific [place] Urine Protein Urine Ketones Urine Blood Urine Nitrite Urine Bilirubin Urine Urobilinogen Ur Leukocyte Esterase Urine RBC Urine WBC Ur Epithelial Cells Urine Crystals Urine Bacteria Urine Casts Urine Mucus Ur Culture Indicated? Urine Glucose COVID-19 Source Nasal/Nares Last Vital Signs Temp 98.4 F 10/19/21 11:59 Pulse 85 10/19/21 12:30 Resp 16 10/19/21 11:59 BP 103/63 10/19/21 12:30 Pulse Ox 100 10/19/21 13:10
[2021-10-19] MEDS: Scopolamine 1 MG/3 DAYS PATCH TD (14:07)
[2021-10-19] MEDS: ERTAPENEM 1 GM in Normal Saline 50 ML IVPB (14:07)
--- NOTE | 2021-10-19 14:21 | ANES.PREOP_ITS ---
General Info Date of Service Date Performed: 10/19/21 Height: 5 ft 8 in Weight: 56.699 kg Body Mass Index (BMI): 19.0 Surgical Procedure: Operation Date: 10/19/21 14:25 Proposed Procedures Side Surgeon p Appendectomy Laparoscopic Soumya Rodrigez MD Meds Allergies and Home Medications Allergies Allergy/AdvReac Type Severity Reaction Status Date / Time Penicillins Allergy Mild Verified 10/19/21 12:02 Sulfa (Sulfonamide AdvReac Intermediate Diarrhea Unverified 10/19/21 12:02 Antibiotics) Home Medication Medication Instructions Recorded multivitamin 1 tab PO DAILY 10/02/20 psyllium husk 3.4 gram/5.4 gram 1 tsp PO DAILY 10/02/20 oral powder B6 0.85 mg-folic 200 tab PO 10/04/21 [id number] oral chewable tablet bisacodyl 5 mg tablet,delayed 5 mg PO ONCE #4 tab 10/04/21 release bisacodyl 5 mg tablet,delayed 5 mg PO ONCE #4 tab 10/04/21 release lactobacillus combination no.9 4 4,000 mmu cells PO DAILY 10/04/21 billion cell capsule polyethylene glycol 3350 17 238 g PO ONCE #238 g 10/04/21 gram/dose oral powder Current Visit Medications: Current Medications Generic Name Dose Route Start Last Admin Trade Name Freq PRN Reason Stop Dose Admin IV Miscellaneous Supplies 1 each 10/19/21 12:15 Iv Access IV DIRECTED [facility] Active Problems Active Problems: Problem Status Onset Code Postoperative nausea and vomiting R11.2, Z98.890 Acute appendicitis K35.80 Medical History Medical History (Updated 10/19/21 @ 14:07 by Soumya Rodrigez MD) Constipation Hemorrhoids Impingement syndrome of right shoulder Scoliosis Surgical History Surgical History (Updated 10/19/21 @ 13:59 by Soumya Rodrigez MD) S/P colonoscopy S/P laparoscopy diagnostic S/P removal of ovarian cyst S/P shoulder surgery Tobacco Smoking/Tobacco Use Status: Never Alcohol Alcohol Intake: current Alcohol intake frequency: a few times a week Substance Use Substance use: Occasionally Substance use type: marijuana Vital Signs and Lab Results Vital Signs Most Recent Vital Signs in EMR: Most Recent Vital Signs Temp Pulse Resp BP Pulse Ox 36.9 C 85 16 103/63 100 10/19/21 11:59 10/19/21 12:30 10/19/21 11:59 10/19/21 12:30 10/19/21 13:10 Point of Care Results Point of Care Results: POC- Test(urine) Negative 10/19/21 12:13 Lab Results Result Diagrams: 10/19/21 12:02 10/19/21 12:02 Blood Type / Crossmatch: No Data to Display Complete Blood Count: White Blood Count 14.07 10^3/uL (4.4-10.8) H 10/19/21 12:02 10/19/21 Red Blood Count 4.54 10^6/uL (3.93-5.22) 10/19/21 12:02 10/19/21 Hemoglobin 13.5 g/dL (11.2-15.7) 10/19/21 12:02 10/19/21 Hematocrit 41.0 % (36.0-46.0) 10/19/21 12:02 10/19/21 Platelet Count 299 10^3/uL (130-400) 10/19/21 12:02 10/19/21 Complete Metabolic Panel: Sodium Level 137 mmol/L (136-145) 10/19/21 12:10/19/21 Potassium Level 3.5 mmol/L (3.5-5.1) 10/19/21 12:02 10/19/21 Chloride Level 101 mmol/L (98-107) 10/19/21 12:10/19/21 Carbon Dioxide Level 27.8 mmol/L (21.0-32.0) 10/19/21 12:10/19/21 Blood Urea Nitrogen 11 mg/dL (7-18) 10/19/21 12:02 10/19/21 Creatinine 1.0 mg/dL (0.55-1.02) 10/19/21 12:02 10/19/21 Estimated GFR/1.73 m2 58.00 (mL/min/1.73m2) 10/19/21 12:02 10/19/21 Calcium Level 8.7 mg/dL (8.5-10.1) 10/19/21 12:02 10/19/21 Albumin 3.9 g/dL (3.4-5.0) 10/19/21 12:02 10/19/21 Glucose Level 106 mg/dL (74-106) 10/19/21 12:02 10/19/21 Liver Function Panel: Alanine Aminotransferase (ALT/SGPT) 30 U/L (14-59) 10/19/21 12:02 10/19/21 Aspartate Amino Transf (AST/SGOT) 23 U/L (15-37) 10/19/21 12:02 10/19/21 Coagulation Panel: No Data to Display Cardiac Panel: No Data to Display Arterial Blood Gas: No Data to Display Venous Blood Gas: No Data to Display Pancreas Panel: Lipase 73 U/L (73-393) 10/19/21 12:02 10/19/21 Thyroid Panel: No Data to Display Infectious Disease: Coronavirus (COVID-19)(PCR) Negative (Negative) 10/19/21 13:40 10/19/21 Coronavirus 2019 Source Nasal/Nares 10/19/21 13:40 10/19/21 Blood Cultures: No Data to Display Toxicology Panel: No Data to Display Panel: No Data to Display Anesthesia Assessment and Plan Anesthesia History Personal History: PONV Family History: No Family History of Anesthesia Complications Exercise Tolerance Exercise Tolerance: Metabolic Equivalents>4 Pertinent Negatives Pertinent Negatives: No Symptoms of GERD, No Major Cardiovascular Symptoms or Complaints, No Major Pulmonary Symptoms or Complaints and No History of CVA/TIA Cardiac & Pulmonary Exam Cardiac Exam: Normal S1/S2 Heart Sounds Pulmonary Exam: Clear Bilateral Breath Sounds Implantable Cardiac Device Does patient have a Pacemaker or an ICD?: No Airway Exam Known Difficult Airway: No Mallampati Class: 3 Mouth Opening: Normal (> 3cm) Thyromental Distance: Greater than 3 cm Neck Range of Motion: Full ROM Neck Circumference: Normal Teeth Condition: Normal Dentition (Permanent retainer behind lower teeth) ASA Classification ASA Score: ASA 2 Emergency Case?: Yes NPO Status NPO Status: NPO Clears >2 hours, Solids >8 hours Status Status: Not Per Patient Anesthesia Plan Resuscitation Status: Full Code Anesthesia Technique: General Anesthesia Airway Planned: Endotracheal Tube Monitors Used: Standard Monitors
[2021-10-19 15:06] LABS: COVID-19 PCR Negative (Negative)
[2021-10-19] MEDS: Lactated Ringers 1,000 ML 30 ML IV (15:38)
--- NOTE | 2021-10-19 16:10 | APP_PTH ---
PATIENT: Reny Smith LOC: U#:[id number] AGE/SX: 55/F ROOM: [id number] RE10/19/[address]: Soumya oRdrigez MD : [id number] BED: A DIS: 10/22/2021 SPEC #: [id number] RECD: 10/19/21 18:28 STATUS: HENRY REQ #: [id number] ADRY: 10/19/21 16:[address]: Soumya Rodrigez DEPT: Surgical Specimen RECD BY: Maricel Silva ENTERED: 10/25/21 14:59 SP TYPE: Appendix OTHR DR: Erika Adams Tissues: 1 - APPENDIX NOT INCIDENTAL Procedures: GROSS AND MICRO LEVEL 3 Comments: [id number]
[2021-10-19] MEDS: Bupivacaine 0.25% Pres-Free 30 ML VIAL (16:20)
[2021-10-19] MEDS: Bupivacaine LIPOSOME/PF 133 MG/10 ML VIAL IJ (16:20)
--- NOTE | 2021-10-19 16:32 | ROE_ITS ---
Date of service: 10/19/21 Time of Service: 16:33 Operative Note Operative Note DATE OF PROCEDURE: 10/19/21 PRE-OP DIAGNOSIS: Acute Appendicitis POST-OP DIAGNOSIS: same (with microperforation) PROCEDURE: Laparoscopic Appendectomy SURGEON: Soumya Rodrigez ZIPPER SETTER LOCKSTITCH: Jd Salinas ANESTHESIA TYPE: General LMA/ETT (Gee Duggan CRNA) Refer to Anesthesia Record ESTIMATED BLOOD LOSS: 25 PATHOLOGY: other (Appendix) COMPLICATIONS: None Patient was transported to: PACU Patient's condition: stable Indications: Mrs Smith is a pleasant 55 year old female with RLQ pain since yesterday evening. CT scan is consistent with acute appendicitis. Risks, benefits and complications have been reviewed. Complications include but are not limited to bleeding, infection, injury to the intestine, leaking from the staple line and adverse reaction to the medications. Questions were entertained and answered to her satisfaction and she wished to proceed. Proceed with Laparoscopic Appendectomy Procedure Description: After informed consent was obtained the patient was taken to the operating room placed in the supine position, SCDs were applied as well as monitors. A timeout was done. The patient was then placed under general anesthesia and intubated without any difficulty. Next a Andersen catheter was placed in a standard surgical fashion. At this point the abdomen was prepped and draped in a sterile surgical fashion with chlorhexidine. A second timeout was done and the patient's name, date of , operation to be performed, DVT prophylaxis, antibiotic given, and fire risk was assessed. Exparel was mixed 50-50 with 0.25% Bupivocaine. The mixture was injected into the dermis just below the umbilicus. A small 5 mm incision was made with an 11 blade. The skin was grasped with penetrating towel clamps on either side of the incision and then using a Visiport a 5 mm port was placed under direct visualization into the abdomen. The abdomen was insufflated. Local anesthetic was then injected just above the pubic symphysis just to the right of midline. A small 5 mm incision was made with an 11 blade and another 5 mm port was placed under direct visualization into the abdomen. The local anesthetic was then injected in the left lower quadrant area and a 12 mm incision was made with an 11 blade. A 12 mm port was then placed under direct visualization. The patient's bed was then turned to the left and head down allowing me to sweep of the small bowel out of the right lower quadrant. The cecum was gently grasped and the appendix was identified. The appendix looked inflammed and thickened and was retrocecal. Using the Ligasure the cecum was mobilized along the white line of toldt in order to visualize the rip of the appendix. There was a small amount of dark fluid around the tip of the appendix and an area of necrosis. The appendix was grasped at the neck and pulled up slightly allowing me to visualize the junction with the cecum. Using the laparoscopic LigaSure the mesoappendix was slowly transected. Using a laparoscopic straight stapler the appendix was then transected at the junction with the cecum. The appendix was placed into an Endo Catch bag and removed through the 12 mm port site. The port was placed back into the abdomen and the staple line was identified. No bleeding was noted. The transected mesentery was identified and no bleeding was noted. The abdomen was irrigated with warm NS until the effluent was clear. 20 cc of 0.25% Bupivocaine was then injected above the liver bed to help with postoperative pain. The 2 5 mm ports were then removed under direct visualization and no bleeding was noted from the fascia. The insufflation was stopped and the 12 mm port was removed. The 12 mm port site fascia was closed with a 0 Vicryl [id number] suture. The skin was then closed with 4-0 Vicryl. The skin was cleaned and dried and skin affix was applied. The patient was woken up, extubated and taken back to recovery room in stable condition. There were no immediate complications. Sponge, instrument and needle counts were correct at the end of the case x2.
--- NOTE | 2021-10-19 16:51 | W.ANESPOSTOP ---
Postoperative Evaluation Date, Time and Location Date Performed: 10/19/21 Time Performed: 16:51 Patient Location: PACU Vital Signs Most Recent Imported Vital Signs: Most Recent Vital Signs Temp Pulse Resp BP Pulse Ox 37.2 C 105 H 16 108/65 96 10/19/21 16:42 10/19/21 16:42 10/19/21 16:42 10/19/21 16:42 10/19/21 16:42 Pain Score Most Recent Pain Score: Most Recent Pain Score Pain Level 0 10/19/21 16:42 Assessment Mental Status: Awake (Alert & Oriented to Patient Baseline) Airway and Respiratory Function: Patent airway with normal (patient baseline) respiratory exam Cardiovascular Function: Hemodynamically Stable Hydration Status: Adequately Hydrated Nausea & Vomiting: No Nausea or Vomiting Pain: Pt. Denies Any Pain Peripheral Nerve Block: Patient did not receive a nerve block
[2021-10-19] MEDS: Normal Saline Flush 10 ML SYR (17:11)
[2021-10-19] MEDS: Acetaminophen 325 MG TAB 650 MG PO (18:10)
[2021-10-19] MEDS: Enoxaparin 40 MG/0.4 ML SYR SC (18:10)
[2021-10-19] MEDS: FAMOTIDINE 20 MG/50 ML BAG 200 MG IVPB (18:10)
[2021-10-19] MEDS: Docusate Sodium 100 MG CAP PO (20:27)
[2021-10-20] VITALS (14 sets, daily range): BP systolic 91–106; BP diastolic 59–68; PULSE 66–90; RESP 12–18; TEMP 36.6–38.7; O2SAT 97–100
[2021-10-20] MEDS: Acetaminophen 325 MG TAB 650 MG PO ×2 (00:27→11:35)
[2021-10-20] MEDS: FAMOTIDINE 20 MG/50 ML BAG 200 MG IVPB ×2 (05:23→18:19)
[2021-10-20 06:45] LABS: HCT 35.6 % (36.0-46.0); HGB 11.6 g/dL (11.2-15.7); MCH 29.7 pg (27.0-33.0); MCHC 32.6 % (32.0-36.0); MCV 91.3 fL (80-95); MPV 10.7 fL (8.0-11.0); Platelet Count 242 10^3/uL (130-400); RDW 13.5 % (11.7-14.6); RDW-SD 45.2 fL; WBC 13.36 10^3/uL (4.4-10.8)
[2021-10-20 07:38] LABS: Abs Immature Grans 0.05 10^3/uL (0.0-0.06); Absolute Basophil Count 0.02 10^3/uL (0.0-0.2); Absolute Lymphocyte Count 0.99 10^3/uL (1.2-3.4); Absolute Monocyte Count 0.71 10^3/uL (0.1-0.8); Absolute Neutrophil Count 11.42 10^3/uL (1.2-6.7); Basophils % 0.2; Immature Grans % 0.4; Lymphocytes % 7.5; Monocytes % 5.4; Neutrophils % 86.5
[2021-10-20] MEDS: Psyllium PKT 1 EACH PO (07:38)
[2021-10-20] MEDS: Docusate Sodium 100 MG CAP PO ×3 (07:38→19:53)
[2021-10-20] MEDS: Normal Saline Flush 10 ML SYR IVP ×3 (07:38→18:19)
--- NOTE | 2021-10-20 08:56 | INITIAL_ITS ---
- If Service Date Differs Date of service: 10/20/21 Time of Service: 08:56 Care Management Initial Assess REASON FOR HOSPITALIZATION:: appendicitis PAST MEDICAL HISTORY/PAST SURGICAL HISTORY:: Medical History (Updated 10/19/21 @ 14:07 by Soumya Rodrigez MD). Constipation. Hemorrhoids. Impingement syndrome of right shoulder. Scoliosis. Surgical History (Updated 10/19/21 @ 13:59 by Soumya Rodrigez MD). S/P colonoscopy. S/P laparoscopy. diagnostic. S/P removal of ovarian cyst. S/P shoulder surgery PREVIOUS FUNCTIONAL STATUS/SOCIAL/FAMILY SUPPORTS:: Reny lives in [facility] with her [place] and 15 year old son. She has another son who is 29 and lives in [place]. 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 She is independent at baseline and does not receive any community services. CURRENT FUNCTIONAL STATUS:: Reny was sitting up in bed when CM met with her. She was pleasant and cooperative, answering questions easily. Reny stated that she is 65% back to baseline. She does still have a fever and her WBC remains elevated. Her blood pressures have been low, generally between 90 and 110 systolic but this appears to be her baseline. Reny denied the need for services at discharge. ADVANCE DIRECTIVES:: On file. [facility] Has patient been provided with info about the portal/API?: Yes Did the patient sign up for the portal?: Yes (previously) CODE STATUS:: Full Code INSURANCE COVERAGE / FINANCIAL ISSUES:: BS CURRENT HOME/COMMUNITY SERVICES/EQUIPMENT:: none currently PRIMARY CARE PHYSICIAN:: Erika Adams POTENTIAL DISCHARGE NEEDS:: follow up with surgeon and plkan of care PATIENT/FAMILY EDUCATION NEEDS:: review of discharge instructionas, follow up plan, activity, diet, medications, limitations, Ask Me Three TRANSPORTATION:: via private vehicle with family PLAN:: Reny will likley be discharged home with no new services. She will follow up with her community providers and plan of care as prescribed and transport with family. CM will continue to support Reny and her discharge planning needs.
--- NOTE | 2021-10-20 09:02 | W.PM.PROGNOT ---
Date of Service Date of service: 10/20/21 Time of Service: 09:02 Assessment and Plan Assessment and plan (1) Acute appendicitis: Status: Acute Assessment and plan: POD #1 s/p laparoscopic Appendectomy Patient had fevers overnight despite use of tylenol. She denies having any nausea or vomiting WBC continues to be elevated today at 13.36 down from 14.07 Continue with post-op diet progressing as tolerated to regular diet Strongly encouraged use of incentive spirometer, ambulation and sitting up in the chair Pulmonary toilet incisions are intact with skin a fix in place. Will continue to monitor her. Qualifiers: Acute appendicitis type: with localized peritonitis Appendicitis gangrene presence: without gangrene Appendicitis perforation presence: without perforation Appendicitis abscess presence: without abscess Qualified Code(s): K35.30 - Acute appendicitis with localized peritonitis, without perforation or gangrene Subjective Subjective Interval history since last seen: Patient expresses abdominal bloating and soreness. She expresses eagerness to return home. Exam Const General: cooperative, healthy appearing and comfortable Orientation: alert and oriented x3 Resp Effort & Inspection: normal respiratory effort, no audible wheezes and no cough GI Inspection: normal to inspection Palpation: soft, no guarding and tender (surrounding incision sites ) Objective Last Vital Signs Temp 36.6 C 10/20/21 07:26 Pulse 66 10/20/21 07:26 Resp 16 10/20/21 07:26 BP 91/59 L 10/20/21 07:26 Pulse Ox 100 10/20/21 07:26 Laboratory Results - last 24 hr 10/19/21 10/19/21 10/19/21 12:02 12:02 12:10 WBC 14.07 H RBC 4.54 Hgb 13.5 Hct 41.0 MCV 90.3 MCH 29.7 MCHC 32.9 RDW 13.1 Plt Count 299 MPV 10.3 Immature Gran % 0.6 Neutrophils % 82.0 Band Neutrophils % Lymphocytes % 12.6 Atypical Lymphs % Monocytes % 4.2 Eosinophils % 0.3 Basophils % 0.3 Metamyelocytes % Myelocytes % Promyelocytes % Other Cells % Nucleated RBC % 0 Absolute Neutrophils 11.54 H Absolute Lymphocytes 1.77 Absolute Monocytes 0.59 Absolute Eosinophils 0.04 Absolute Basophils 0.04 RBC Morphology Polychromasia Hypochromasia Poikilocytosis Basophilic Stippling Anisocytosis Microcytosis Macrocytosis Spherocytes Tear Drop Cells Ovalocytes Stomatocytes [place] Bodies Harrison Cells/Echinocytes Acanthocytes (Spur) Schistocytes Sodium 137 Potassium 3.5 Chloride 101 Carbon Dioxide 27.8 Anion Gap 8.2 BUN 11 Creatinine 1.0 Estimated GFR/1.73 m2 58.00 Glucose 106 Calcium 8.7 Total Bilirubin 2.0 H AST 23 ALT 30 Alkaline Phosphatase 89 Total Protein 7.5 Albumin 3.9 Lipase 73 Urine Color Yellow Urine Clarity Clear Urine pH 7.5 Ur Specific [place] 1.020 Urine Protein Negative Urine Ketones Negative Urine Blood Trace-intact H Urine Nitrite Negative Urine Bilirubin Negative Urine Urobilinogen 0.2 Ur Leukocyte Esterase Trace H Urine RBC 3-5 H Urine WBC 3-5 Ur Epithelial Cells Few Urine Crystals Negative Urine Bacteria Few Urine Casts Negative Urine Mucus Trace Ur Culture Indicated? No Urine Glucose Negative COVID-19 Source SARS-CoV-2 (PCR) 10/19/21 10/20/21 10/20/21 13:40 05:38 06:19 WBC Cancelled 13.36 H RBC Cancelled 3.90 L Hgb Cancelled 11.6 Hct Cancelled 35.6 L MCV Cancelled 91.3 MCH Cancelled 29.7 MCHC Cancelled 32.6 RDW Cancelled 13.5 Plt Count Cancelled 242 MPV Cancelled 10.7 Immature Gran % Cancelled 0.4 Neutrophils % Cancelled 86.5 Band Neutrophils % Cancelled Lymphocytes % Cancelled 7.5 Atypical Lymphs % Cancelled Monocytes % Cancelled 5.4 Eosinophils % Cancelled 0.0 Basophils % Cancelled 0.2 Metamyelocytes % Cancelled Myelocytes % Cancelled Promyelocytes % Cancelled Other Cells % Cancelled Nucleated RBC % Cancelled Absolute Neutrophils Cancelled 11.42 H Absolute Lymphocytes Cancelled 0.99 L Absolute Monocytes Cancelled 0.71 Absolute Eosinophils Cancelled 0.00 Absolute Basophils Cancelled 0.02 RBC Morphology Cancelled Polychromasia Cancelled Hypochromasia Cancelled Poikilocytosis Cancelled Basophilic Stippling Cancelled Anisocytosis Cancelled Microcytosis Cancelled Macrocytosis Cancelled Spherocytes Cancelled Tear Drop Cells Cancelled Ovalocytes Cancelled Stomatocytes Cancelled [place] Bodies Cancelled Pan Cells/Echinocytes Cancelled Acanthocytes (Spur) Cancelled Schistocytes Cancelled Sodium Potassium Chloride Carbon Dioxide Anion Gap BUN Creatinine Estimated GFR/1.73 m2 Glucose Calcium Total Bilirubin AST ALT Alkaline Phosphatase Total Protein Albumin Lipase Urine Color Urine Clarity Urine pH Ur Specific [place] Urine Protein Urine Ketones Urine Blood Urine Nitrite Urine Bilirubin Urine Urobilinogen Ur Leukocyte Esterase Urine RBC Urine WBC Ur Epithelial Cells Urine Crystals Urine Bacteria Urine Casts Urine Mucus Ur Culture Indicated? Urine Glucose COVID-19 Source Nasal/Nares SARS-CoV-2 (PCR) Negative PAWSS Have you Been Recently Intoxicated or Drunk Within the Last 30 days?: No Have you Ever Experienced Previous Episodes of Alcohol Withdrawal?: No Have you ever Experienced Withdrawal Seizures?: No Have you ever Experienced Delirium Tremens(DT)s?: No Have you ever undergone Alcohol Rehabilitation Treatment (i.e, inpt ot outpatient treatment programs)?: No Have you ever Experienced Blackouts?: No Have you ever Combined Alcohol with other Downers within the last 90 days?: No Have you ever Combined Alcohol with any other Substance of Abuse during the last 90 days?: No Positive Blood Alcohol level on Presentation? [PCS.BAL]: No Evidence of Increased Autonomic Activity (i.e. HR>120, tremor, sweating, agitation, nausea)?: No Result: 0
[2021-10-20] MEDS: Ibuprofen 600 MG TAB PO ×2 (10:39→19:53)
--- NOTE | 2021-10-20 11:39 | PHA.REVIEW ---
Pharmacy Admission Review - Admission Clinical Review (Last Reviewed 10/19/21 @ 13:33 by GUMARO Mccann) Postoperative nausea and vomiting (Acute) Acute appendicitis (Acute) Penicillins Allergy (Mild, Verified 10/19/21 12:02) Sulfa (Sulfonamide Antibiotics) Adverse Reaction (Intermediate, Unverified 10/19/21 12:02) Diarrhea Resuscitation Status Full Code Height 5 ft 8 in Weight 56.8 kg - Renal Dosing Renal Dosing: BUN 11 mg/dL (7-18) 10/19/21 12:02 Creatinine 1.0 mg/dL (0.55-1.02) 10/19/21 12:02 Medications needing adjustments: Reviewed (SCr: 1.0 CrCl~58.33mL/min.) List of meds needing interventions: Famotidine 20mg could be decreased to once daily, spoke with Dr. Rodrigez and for now will continue BID dosing and continue to monitor renal function. - Anticoagulation Anticoagulation: Hgb 11.6 g/dL (11.2-15.7) 10/20/21 06:19 Hct 35.6 % (36.0-46.0) L 10/20/21 06:19 Plt Count 242 10^3/uL (130-400) 10/20/21 06:19 Creatinine 1.0 mg/dL (0.55-1.02) 10/19/21 12:02 DVT Prophylaxis: Reviewed Medications: Enoxaparin (Enoxaparin 40mg SC Q24H) - Opiate Usage Evaluate Pain Scale/Pains Meds: Reviewed Scheduled Bowel Reg ordered if on Opiates?: Yes (Docusate and Metamucil) - Relevant Labs Sodium 137 mmol/L (136-145) 10/19/21 12:02 Potassium 3.5 mmol/L (3.5-5.1) 10/19/21 12:02 Chloride 101 mmol/L (98-107) 10/19/21 12:02 Electrolytes, C-Reactive P, ESR: Reviewed - DM Control DM Control: Glucose 106 mg/dL (74-106) 10/19/21 12:02 Insulin Dosing: N/A - Heart Failure/OH EF%, KATH's, B-Blockers, Diuretics: N/A - BP Control BP Control: Blood Pressure 91/59 Blood Pressure 104/62 If elevated: Reviewed (Blood pressure low during this admission.) - Qtc Review If Elevated: N/A - IV to PO Switch IV Medications: Reviewed - Home Meds Home Med List reviewed: Reviewed - Current meds Current Medication Order Review: Reviewed Antibiotic Activity - Pharmacy Antibiotic Review Pharmacy Antibiotic Activity: Reviewed, no change (Ertapenem 1gm Q24H (Day 2))
--- NOTE | 2021-10-20 12:37 | RESPIRATORY ---
Pt very cooperative and compliant with IS training. Pt states she has been using it several times hourly. RT educated pt on significance of using IS.
--- NOTE | 2021-10-20 14:32 | CHAPLAIN ---
Reny was resting in bed, using her incentive spirometer when visited this morning. She told me about having her appendix out yesterday, and said she expects to be discharged today. She works for [employer] and is on break currently. Reny hopes to have a few days of rest at home before going back to work after New Year's Day. She was pleasant and easily engaged in a conversation. Her has been here and will likely visit again today.
[2021-10-20] MEDS: ERTAPENEM 1 GM in Normal Saline 50 ML IVPB (14:35)
[2021-10-20] MEDS: Enoxaparin 40 MG/0.4 ML SYR SC (18:19)
[2021-10-20] MEDS: Mylanta Suspension 30 ML CUP PO (20:02)
[2021-10-21 01:11] VITALS: TEMP 38.3
[2021-10-21] MEDS: Acetaminophen 325 MG TAB 650 MG PO (01:11)
[2021-10-21 04:41] VITALS: TEMP 37
[2021-10-21 06:41] VITALS: TEMP 36.6
[2021-10-21] MEDS: FAMOTIDINE 20 MG/50 ML BAG 200 MG IVPB ×2 (06:42→17:55)
[2021-10-21 06:53] LABS: Abs Immature Grans 0.04 10^3/uL (0.0-0.06); Absolute Eosinophil Count 0.06 10^3/uL (0.0-0.7); Absolute Lymphocyte Count 0.73 10^3/uL (1.2-3.4); Absolute Monocyte Count 0.43 10^3/uL (0.1-0.8); Basophils % 0.2; Eosinophils % 0.5; HCT 35.3 % (36.0-46.0); HGB 11.4 g/dL (11.2-15.7); Immature Grans % 0.3; MCH 29.9 pg (27.0-33.0); MCHC 32.3 % (32.0-36.0); MCV 92.7 fL (80-95); MPV 10.9 fL (8.0-11.0); Monocytes % 3.5; Neutrophils % 89.5; Nucleated RBC 0 %; Platelet Count 243 10^3/uL (130-400); RBC 3.81 10^6/uL (3.93-5.22); RDW 13.4 % (11.7-14.6); RDW-SD 45.8 fL; WBC 12.21 10^3/uL (4.4-10.8)
[2021-10-21 07:01] LABS: Absolute Basophil Count 0.02 10^3/uL (0.0-0.2); Absolute Neutrophil Count 10.93 10^3/uL (1.2-6.7)
[2021-10-21 07:19] VITALS: BP 98/63; PULSE 84; RESP 16; TEMP 36.6; O2SAT 98
--- NOTE | 2021-10-21 07:53 | W.PM.PROGNOT ---
Date of Service Date of service: 10/21/21 Time of Service: 07:53 Assessment and Plan Assessment and plan (1) Acute appendicitis: Status: Acute Assessment and plan: POD #2 s/p laparoscopic Appendectomy Fevers continued through the evening She denies having any nausea or vomiting WBC trending downward Regular diet Strongly encouraged use of incentive spirometer, ambulation and sitting up in the chair Pulmonary toilet Will continue to monitor her. Qualifiers: Acute appendicitis type: with localized peritonitis Appendicitis gangrene presence: without gangrene Appendicitis perforation presence: without perforation Appendicitis abscess presence: without abscess Qualified Code(s): K35.30 - Acute appendicitis with localized peritonitis, without perforation or gangrene Subjective Subjective Interval history since last seen: Patient reports that she is feeling better this morning, she was able to have a BM and she feels slightly less distended. Exam Const General: cooperative, healthy appearing and comfortable Orientation: alert and oriented x3 GI Palpation: firm and tender (surrounding the incisions) Objective Last Vital Signs Temp 36.6 C 10/21/21 07:19 Pulse 84 10/21/21 07:19 Resp 16 10/21/21 07:19 BP 98/63 L 10/21/21 07:19 Pulse Ox 98 10/21/21 07:19 Laboratory Results - last 24 hr 10/21/21 06:00 WBC 12.21 H RBC 3.81 L Hgb 11.4 Hct 35.3 L MCV 92.7 MCH 29.9 MCHC 32.3 RDW 13.4 Plt Count 243 MPV 10.9 Immature Gran % 0.3 Neutrophils % 89.5 Lymphocytes % 6.0 Monocytes % 3.5 Eosinophils % 0.5 Basophils % 0.2 Nucleated RBC % 0 Absolute Neutrophils 10.93 H Absolute Lymphocytes 0.73 L Absolute Monocytes 0.43 Absolute Eosinophils 0.06 Absolute Basophils 0.02 PAWSS Have you Been Recently Intoxicated or Drunk Within the Last 30 days?: No Have you Ever Experienced Previous Episodes of Alcohol Withdrawal?: No Have you ever Experienced Withdrawal Seizures?: No Have you ever Experienced Delirium Tremens(DT)s?: No Have you ever undergone Alcohol Rehabilitation Treatment (i.e, inpt ot outpatient treatment programs)?: No Have you ever Experienced Blackouts?: No Have you ever Combined Alcohol with other Downers within the last 90 days?: No Have you ever Combined Alcohol with any other Substance of Abuse during the last 90 days?: No Positive Blood Alcohol level on Presentation? [PCS.BAL]: No Evidence of Increased Autonomic Activity (i.e. HR>120, tremor, sweating, agitation, nausea)?: No Result: 0
[2021-10-21] MEDS: Docusate Sodium 100 MG CAP PO ×3 (08:42→19:46)
[2021-10-21] MEDS: Psyllium PKT 1 EACH PO (08:42)
--- NOTE | 2021-10-21 10:29 | PDOC.CMPRO ---
- If Service Date Differs Date of service: 10/21/21 Time of Service: 10:29 Care Management Progress Note S/O:Reny was sitting up in a chair reading when CM met with her. She was in good spirits and shared that she feels that she is 75% back to her baseline. She did have a fever again last night but has been afebrile this morning. Her WBC is coming down but has not returned to normal. Reny verbalized that she is really hoping to be discharged later today, but has not seen the surgeon yet today. A: Reny is a 55 year old woman admitted on 10/19/21 with appendicitis P:Reny will likely be discharged home with no new services. She will follow up with her community providers and plan of care as prescribed and transport with family. CM will continue to support Reny and her discharge planning needs.
[2021-10-21] MEDS: Normal Saline Flush 10 ML SYR IVP ×2 (14:40→17:56)
[2021-10-21] MEDS: ERTAPENEM 1 GM in Normal Saline 50 ML IVPB (14:40)
[2021-10-21 15:13] VITALS: BP 102/71; PULSE 85; RESP 16; TEMP 37.3; O2SAT 100
[2021-10-21] MEDS: Enoxaparin 40 MG/0.4 ML SYR SC (17:56)
[2021-10-21] MEDS: Mylanta Suspension 30 ML CUP PO (19:46)
[2021-10-21 23:35] VITALS: BP 104/67; PULSE 101; RESP 17; TEMP 37.3; O2SAT 96
[2021-10-22] MEDS: FAMOTIDINE 20 MG/50 ML BAG 200 MG IVPB (05:52)
[2021-10-22] MEDS: Acetaminophen 325 MG TAB 650 MG PO (06:19)
[2021-10-22 08:27] VITALS: BP 107/71; PULSE 98; RESP 16; TEMP 37.1; O2SAT 97
[2021-10-22 08:35] LABS: HCT 34.1 % (36.0-46.0); MCH 29.6 pg (27.0-33.0); MCHC 32.3 % (32.0-36.0); MCV 91.7 fL (80-95); MPV 9.9 fL (8.0-11.0); Platelet Count 274 10^3/uL (130-400); RBC 3.72 10^6/uL (3.93-5.22); RDW 13.2 % (11.7-14.6); RDW-SD 44.5 fL; WBC 10.76 10^3/uL (4.4-10.8)
[2021-10-22] MEDS: Docusate Sodium 100 MG CAP PO ×2 (08:39→13:42)
[2021-10-22] MEDS: Psyllium PKT 1 EACH PO (08:39)
--- NOTE | 2021-10-22 12:36 | DSE_ITS ---
Date of service: 10/22/21 Time of Service: 12:36 DS: Diagnosis Discharge Diagnosis (1) Acute appendicitis: Status: Acute Discharge Plan Disposition Patient Disposition: HOME Condition: Serious Discharge Details Reason For Visit: Acute Appendicitis Admit Date/Time: 10/19/21 16:25 Admit Provider: Soumya Rodrigez Attending Provider: Soumya Rodrigez Primary Care Provider: Erika Adams Hospital Course Hospital Course: see addendum Home Meds and New Rx's Prescriptions: New Bio-K plus 50 billion cell capsule,delayed release(DR/EC) 1 cap PO DAILY Qty: 30 RF: 0 tramadol 50 mg tablet 50 mg PO Q6H PRN (Reason: pain (scale score 7-10)) Qty: 10 RF: 0 ciprofloxacin HCl [Cipro] 500 mg tablet 500 mg PO BID 4 Days Qty: 8 RF: 0 metronidazole 500 mg tablet 500 mg PO TID 4 Days Qty: 12 RF: 0 Continued Adult 50 Plus Probiotic 4 billion cell capsule 4,000 mmu cells PO DAILY RF: 0 Neuriva Plus 0.85 mg-200 mcg-1.2 mcg tablet,chewable PO RF: 0 Metamucil 3.4 gram/5.4 gram powder 1 tsp PO DAILY RF: 0 multivitamin [Daily Multi-Vitamin] Tablet 1 tab PO DAILY RF: 0 Discharge Instructions Additional Instructions: -: Alternate Tylenol 1000mg by mouth every 8 hours and Ibuprofen 600mg every 6 hours. Make sure you take ibuprofen with food and not on an empty stomach. Take the Tylenol and ibuprofen continuously for the next 72hrs- not just when you have pain. Use the tramadol for breakthrough pain. Use ICE! Twenty minutes on, and then off, continuously for the first 72hours. If you are taking narcotic pain medication, follow the instructions on the label and do not drive. Pain medications can make you very constipated. Make sure you are moving your bowels daily. If not, take Miralax, milk of magnesia or magnesium citrate -Keep an ice bag on the incision. 20 minutes on and 20 minutes off. Ice keeps the swelling down and swelling causes pain. Make sure you wrap the ice pack in a towel and don't apply directly to the skin. -No driving x 72hrs or if you are taking narcotic pain medications. -do not remove the purple skin glue that is on your incisions. -Follow-up with Dr. Downey in 1 week. My office will call on Monday to schedule an appt. Dr. Rodrigez in on vacation this coming week. -soft diet: for the next 72 hrs. see additional hand-out -no straining to move bowels -pain meds are very constipating: if you do not move your bowels daily take a dose of OTC milk of magnesia. Continue to take your metamucil as you normally do. -It is ok to shower. No bathe, soaking, swimming or hot tubs -Keep wound clean and dry. Wash incision with soap and water daily. Pat dry, don't rub. -You may find that your appetite is smaller. Eat 3-6 small meals throughout the day. It is important to drink lots of water after surgery, 6-10 glasses a day. -If you were given an incentive spirometry (breathing director operations broadcast?), continue to do this 10x/hour while awake. -We do want you up walking, at least 5-6 times per day. This is very important to prevent pneumonia and blood clots. You can climb stairs, take them slowly. -No lifting over 5 pounds. This is very important to avoid developing a hernia in your incision. -You may find that you are very tired after surgery- this is normal. -If you are running a temperature >100.5/increasing abdominal pain/increasing bloating and can't pass gas/vomiting- please go to the ER. Gastrointestinal Soft Diet Overview Overview What is a gastrointestinal soft diet? This diet is soft in texture, low in fiber, and easy to digest. The goal is to decrease in the bowel that may cause and discomfort. This diet is often used after abdominal surgery or as a transitional diet after flares. Meats & Meat Substitutes ? Foods Allowed: Chicken, turkey, fish, tender cuts of beef and pork, ground meats, eggs, creamy nut butters, tofu, skinless hot dogs, sausage patties without whole spices ? Foods to Avoid : Tough, fibrous meats with gristle, meat with casings (hot dogs, sausage, kielbasa), lunch meats with whole spices, shellfish, beans, chunky peanut butter, nuts Fruits and Juices ? Foods Allowed: Fruit juices without pulp, banana, avocado, applesauce, canned peaches and pears, cooked fruit without the skin/seeds ? Foods to Avoid: Juices with pulp, fresh fruit (except banana and avocado), dried fruits, canned fruit cocktail and pineapple, coconut, frozen/thawed berries Vegetables ? Foods Allowed: Well-cooked or canned vegetables, potatoes without skin, tomato sauces, vegetable juice ? Foods to Avoid: Raw vegetables, all corn, all mushrooms, stewed tomatoes, potato skins, stir-catherine vegetables, sauerkraut, pickles, olives, all dried beans, peas, and legumes Cereals and Grains ? Foods Allowed: Low- fiber dry or cooked cereals (less than 2 grams fiber per serving), white rice, pasta, macaroni, or noodles ? Foods to Avoid: Cereals with nuts, berries, dried fruits, whole grain cereals, bran cereals, granola, brown or wild rice, whole grain pasta Breads and Crackers ? Foods Allowed: White/refined breads and rolls, plain bagel, toast, plain crackers, dashawn crackers ? Foods to Avoid: Whole grain breads- including white whole grain; bread/ rolls with raisins, nuts or seeds, multi-grain crackers Dairy ? Foods Allowed: Milk, cheese, yogurt, milkshakes, pudding, ice cream, cottage cheese, sherbet ; lactose free or low lactose versions if lactose intolerant ? Foods to Avoid: Dairy product mixed with fresh fruit (except banana), berries, nuts or seeds Desserts ? Foods Allowed: Plain cake, pudding, custard, ice cream, sherbet, gelatin, fruit whips ? Foods to Avoid: Any dessert that contains nuts, dried fruits, coconut, or fruits with seeds Herbs and Spices ? Foods Allowed: All ground spices or herbs, salt ? Foods to Avoid: Whole spices such as peppercorns, whole cloves, anise seeds, celery seeds, sandra, chris seeds, and fresh herbs Snacks/Other Foods ? Foods Allowed: Sugar, honey, jelly, mayonnaise, mustard, soy sauce, oil, butter, margarine, marshmallows, cookies without dried fruits or nuts, snack chips and pretzels using refined flours ? Foods to Avoid: Carbonated beverages, jams or jellies with seeds, popcorn After several weeks, slowly start to reintroduce the ?Foods to Avoid? back into your diet unless your doctor has told you otherwise. Try a small portion of one of these foods each day. If it does not bother you within 24 hours, it can be added to your diet. Continue to add new foods in this way. Some people may continue to have food sensitivities and may need to continue to avoid certain foods. If you cannot tolerate a food, avoid that food for a few weeks before you try it again. Guidelines when eating 1. Avoid any food that you cannot tolerate or that causes gas, bloating, or stomach pain. 2. Make time for your meals. Do not eat while you are in a hurry. Cut your food into small pieces. Chew each bite to a mashed potato consistency. Do not eat when you cannot concentrate on chewing well. 3. Drink at least 6-8 cups of fluid per day Fluids include: water, coffee, tea, juice, milk, popsicles, soups, gelatin, pudding, ice cream, sherbet, and y ogurt. In addition, choose caffeine-free beverages more often, especially if you are having diarrhea. 4. A daily multivitamin may be recommended if diet is limited in amounts or variety of foods. Do not take any herbal supplements without first checking with your doctor. Activity:: see above Equipment/Supplies:: No Equipment Needed Diet:: soft/low residue until Monday Discharge Orders Discharge Orders: Discharge Order (Routine); Ordered 10/22/21 Ordered By: Debra Downey DS: Summary Time Spent with Patient providing and/or coordinating discharge services: Less than 30 minutes Status at Discharge Functional status at discharge: independent ambulation Overall status at discharge: patient is progressing back to baseline Mental Status: mental status grossly normal Speech and Movement: speech and movement normal Mood: congruent mood Affect: normal affect Exam Psych Mental Status: mental status grossly normal Speech and Movement: speech and movement normal Mood: congruent mood Affect: normal affect DS: Data Vitals/I&O Vitals and I&O: Vital Signs Temperature 37.1 C 10/22/21 08:27 Temperature Source Tympanic 10/22/21 08:27 Pulse 98 H 10/22/21 08:27 Pulse Rhythm Regular 10/22/21 07:53 Respiratory Rate 16 10/22/21 08:27 Respiratory Effort 10/22/21 07:53 Respiratory Depth Normal 10/22/21 07:53 Respiratory Pattern Normal 10/22/21 07:53 Blood Pressure 107/71 10/22/21 08:27 Blood Pressure Mean 73 10/19/21 12:30 Blood Pressure Position Sitting 10/19/21 11:59 Pulse Oximetry 97 10/22/21 08:27 Respiratory End-tidal CO2 35 10/19/21 16:42 Oxygen Delivery Method Room Air 10/22/21 08:27 Oxygen Flow Rate 0 10/22/21 08:27 Pain Level 0 10/22/21 08:27 Comment 10/20/21 11:32 Intake & Output 10/21/21 10/22/21 10/22/21 23:59 11:59 23:59 Intake Total 460 / 1290 Balance 460 / 1290 Intake: IV 100 / 150 Oral 360 / 1140 Data Completed and Pending Labs on day of discharge: Labs from last 24 hours 10/22/21 08:30 WBC 10.76 RBC 3.72 L Hgb 11.0 L Hct 34.1 L MCV 91.7 MCH 29.6 MCHC 32.3 RDW 13.2 Plt Count 274 MPV 9.9 PFSH All Active Problems (Updated 10/19/21 @ 14:07 by Soumya Rodrigez MD) Postoperative nausea and vomiting (Acute) Acute appendicitis (Acute) Medical History (Updated 10/19/21 @ 14:07 by Soumya Rodrigez MD) Constipation Hemorrhoids Impingement syndrome of right shoulder Scoliosis Surgical History (Updated 10/19/21 @ 13:59 by Soumya Rodrigez MD) S/P colonoscopy S/P laparoscopy diagnostic S/P removal of ovarian cyst S/P shoulder surgery Social History Smoking/Tobacco Use Status: Never Smoking risk assessment performed?: Yes Alcohol Intake: current Alcohol Intake frequency: a few times a week Drug use: Occasionally Substance use type: marijuana Do you feel safe at home: Yes Do you feel safe in your relationship?: Yes
--- NOTE | 2021-10-22 13:06 | PDOC.CMDIS ---
- If Service Date Differs Date of service: 10/22/21 Time of Service: 13:06 LACE Index Scoring Tool - Questions: Length of Stay (in days): 3 Acuity (Admit via E.D.?): Yes E.D. Visits: 1 - Answers: Total Score: 7 Risk of Readmission: Low Risk Care Management Discharge Reason for Hospitalization: appendicitis Discharge Plan: Reny will be discharged home with no new services. She will follow up with her community providers and plan of care as prescribed and transport with family. Patient/Family Education Needs: review of discharge instructionas, follow up plan, activity, diet, medications, limitations, Ask Me Three
[2021-10-22] MEDS: ERTAPENEM 1 GM in Normal Saline 50 ML IVPB (13:42)
[2021-10-22 14:50] VITALS: BP 114/77; PULSE 92; RESP 16; TEMP 37.1; O2SAT 99
--- NOTE | 2021-10-24 17:26 | DSE_ITS ---
DS: Diagnosis Discharge Diagnosis (1) Acute appendicitis: Status: Acute Discharge Plan Disposition Patient Disposition: HOME Condition: Serious Discharge Details Reason For Visit: Acute Appendicitis Admit Date/Time: 10/19/21 16:25 Admit Provider: Soumya Rodrigez Attending Provider: Soumya Rodrigez Primary Care Provider: Erika Adams Hospital Course Hospital Course: see addendum Home Meds and New Rx's Prescriptions: New Bio-K plus 50 billion cell capsule,delayed release(DR/EC) 1 cap PO DAILY Qty: 30 RF: 0 tramadol 50 mg tablet 50 mg PO Q6H PRN (Reason: pain (scale score 7-10)) Qty: 10 RF: 0 ciprofloxacin HCl [Cipro] 500 mg tablet 500 mg PO BID 4 Days Qty: 8 RF: 0 metronidazole 500 mg tablet 500 mg PO TID 4 Days Qty: 12 RF: 0 Continued Adult 50 Plus Probiotic 4 billion cell capsule 4,000 mmu cells PO DAILY RF: 0 Neuriva Plus 0.85 mg-200 mcg-1.2 mcg tablet,chewable PO RF: 0 Metamucil 3.4 gram/5.4 gram powder 1 tsp PO DAILY RF: 0 multivitamin [Daily Multi-Vitamin] Tablet 1 tab PO DAILY RF: 0 Discharge Instructions Instructions: Laparoscopic Appendectomy (DC) Additional Instructions: -: Alternate Tylenol 1000mg by mouth every 8 hours and Ibuprofen 600mg every 6 hours. Make sure you take ibuprofen with food and not on an empty stomach. Take the Tylenol and ibuprofen continuously for the next 72hrs- not just when you have pain. Use the tramadol for breakthrough pain. Use ICE! Twenty minutes on, and then off, continuously for the first 72hours. If you are taking narcotic pain medication, follow the instructions on the label and do not drive. Pain medications can make you very constipated. Make sure you are moving your bowels daily. If not, take Miralax, milk of magnesia or magnesium citrate -Keep an ice bag on the incision. 20 minutes on and 20 minutes off. Ice keeps the swelling down and swelling causes pain. Make sure you wrap the ice pack in a towel and don't apply directly to the skin. -No driving x 72hrs or if you are taking narcotic pain medications. -do not remove the purple skin glue that is on your incisions. -Follow-up with Dr. Downey in 1 week. My office will call on Monday to schedule an appt. Dr. Rodrigez in on vacation this coming week. -soft diet: for the next 72 hrs. see additional hand-out -no straining to move bowels -pain meds are very constipating: if you do not move your bowels daily take a dose of OTC milk of magnesia. Continue to take your metamucil as you normally do. -It is ok to shower. No bathe, soaking, swimming or hot tubs -Keep wound clean and dry. Wash incision with soap and water daily. Pat dry, don't rub. -You may find that your appetite is smaller. Eat 3-6 small meals throughout the day. It is important to drink lots of water after surgery, 6-10 glasses a day. -If you were given an incentive spirometry (breathing load out supervisor?), continue to do this 10x/hour while awake. -We do want you up walking, at least 5-6 times per day. This is very important to prevent pneumonia and blood clots. You can climb stairs, take them slowly. -No lifting over 5 pounds. This is very important to avoid developing a hernia in your incision. -You may find that you are very tired after surgery- this is normal. -If you are running a temperature >100.5/increasing abdominal pain/increasing bloating and can't pass gas/vomiting- please go to the ER. Gastrointestinal Soft Diet Overview Overview What is a gastrointestinal soft diet? This diet is soft in texture, low in fiber, and easy to digest. The goal is to decrease in the bowel that may cause and discomfort. This diet is often used after abdominal surgery or as a transitional diet after flares. Meats & Meat Substitutes ? Foods Allowed: Chicken, turkey, fish, tender cuts of beef and pork, ground meats, eggs, creamy nut butters, tofu, skinless hot dogs, sausage patties without whole spices ? Foods to Avoid : Tough, fibrous meats with gristle, meat with casings (hot dogs, sausage, kielbasa), lunch meats with whole spices, shellfish, beans, chunky peanut butter, nuts Fruits and Juices ? Foods Allowed: Fruit juices without pulp, banana, avocado, applesauce, canned peaches and pears, cooked fruit without the skin/seeds ? Foods to Avoid: Juices with pulp, fresh fruit (except banana and avocado), dried fruits, canned fruit cocktail and pineapple, coconut, frozen/thawed berries Vegetables ? Foods Allowed: Well-cooked or canned vegetables, potatoes without skin, tomato sauces, vegetable juice ? Foods to Avoid: Raw vegetables, all corn, all mushrooms, stewed tomatoes, potato skins, stir-catherine vegetables, sauerkraut, pickles, olives, all dried beans, peas, and legumes Cereals and Grains ? Foods Allowed: Low- fiber dry or cooked cereals (less than 2 grams fiber per serving), white rice, pasta, macaroni, or noodles ? Foods to Avoid: Cereals with nuts, berries, dried fruits, whole grain cereals, bran cereals, granola, brown or wild rice, whole grain pasta Breads and Crackers ? Foods Allowed: White/refined breads and rolls, plain bagel, toast, plain crackers, dashawn crackers ? Foods to Avoid: Whole grain breads- including white whole grain; bread/ rolls with raisins, nuts or seeds, multi-grain crackers Dairy ? Foods Allowed: Milk, cheese, yogurt, milkshakes, pudding, ice cream, cottage cheese, sherbet ; lactose free or low lactose versions if lactose intolerant ? Foods to Avoid: Dairy product mixed with fresh fruit (except banana), berries, nuts or seeds Desserts ? Foods Allowed: Plain cake, pudding, custard, ice cream, sherbet, gelatin, fruit whips ? Foods to Avoid: Any dessert that contains nuts, dried fruits, coconut, or fruits with seeds Herbs and Spices ? Foods Allowed: All ground spices or herbs, salt ? Foods to Avoid: Whole spices such as peppercorns, whole cloves, anise seeds, celery seeds, sandra, chris seeds, and fresh herbs Snacks/Other Foods ? Foods Allowed: Sugar, honey, jelly, mayonnaise, mustard, soy sauce, oil, butter, margarine, marshmallows, cookies without dried fruits or nuts, snack chips and pretzels using refined flours ? Foods to Avoid: Carbonated beverages, jams or jellies with seeds, popcorn After several weeks, slowly start to reintroduce the ?Foods to Avoid? back into your diet unless your doctor has told you otherwise. Try a small portion of one of these foods each day. If it does not bother you within 24 hours, it can be added to your diet. Continue to add new foods in this way. Some people may continue to have food sensitivities and may need to continue to avoid certain foods. If you cannot tolerate a food, avoid that food for a few weeks before you try it again. Guidelines when eating 1. Avoid any food that you cannot tolerate or that causes gas, bloating, or stomach pain. 2. Make time for your meals. Do not eat while you are in a hurry. Cut your food into small pieces. Chew each bite to a mashed potato consistency. Do not eat when you cannot concentrate on chewing well. 3. Drink at least 6-8 cups of fluid per day Fluids include: water, coffee, tea, juice, milk, popsicles, soups, gelatin, pudding, ice cream, sherbet, and yogurt. In addition, choose caffeine-free beverages more often, especially if you are having diarrhea. 4. A daily multivitamin may be recommended if diet is limited in amounts or variety of foods. Do not take any herbal supplements without first checking with your doctor. Stand Alone Forms: Nursing Discharge Form Referrals: Debra Downey DO [OSTEOPATHIC DOCTOR] - (office will call you on Monday with appointment.) Activity:: see above Equipment/Supplies:: No Equipment Needed Diet:: soft/low residue until Monday Discharge Orders Discharge Orders: Discharge Order (Routine); Ordered 10/22/21 Ordered By: Debra Downey Discharge Data Discharge Date/Time-TO BE ENTERED AT DEPARTURE: 10/22/21 14:54 DS: Summary Time Spent with Patient providing and/or coordinating discharge services: Less than 30 minutes Status at Discharge Functional status at discharge: independent ambulation Overall status at discharge: patient is back to baseline Mental Status: mental status grossly normal Speech and Movement: speech and movement normal Mood: congruent mood Affect: normal affect Exam HENMT Other: no thrush or jaundice no eye pain or swelling no thoat pain Resp Effort & Inspection: normal respiratory effort and able to speak in complete sentences Auscultation: clear to auscultation bilaterally Cardio Rate: regular rate Rhythm: regular rhythm GI Inspection: incision (c/d/i. no redness/swelling/drainage) Palpation: soft Auscultation: normal bowel sounds Other: appropriate postOP pain Extrem General: no clubbing, cyanosis or edema Psych Mental Status: mental status grossly normal Speech and Movement: speech and movement normal Mood: congruent mood Affect: normal affect DS: Data Vitals/I&O Vitals and I&O: Vital Signs Temperature 37.1 C 10/22/21 14:50 Temperature Source Tympanic 10/22/21 14:50 Pulse 92 H 10/22/21 14:50 Pulse Rhythm Regular 10/22/21 07:53 Respiratory Rate 16 10/22/21 14:50 Respiratory Effort 10/22/21 07:53 Respiratory Depth Normal 10/22/21 07:53 Respiratory Pattern Normal 10/22/21 07:53 Blood Pressure 114/77 10/22/21 14:50 Blood Pressure Mean 73 10/19/21 12:30 Blood Pressure Position Sitting 10/19/21 11:59 Pulse Oximetry 99 10/22/21 14:50 Respiratory End-tidal CO2 35 10/19/21 16:42 Oxygen Delivery Method Room Air 10/22/21 14:50 Oxygen Flow Rate 0 10/22/21 14:50 Pain Level 0 10/22/21 08:27 Comment 10/20/21 11:32 PFSH All Active Problems (Updated 10/23/21 @ 00:02 by NUNO STERN) Acute appendicitis (Acute) Medical History (Updated 10/23/21 @ 00:02 by NUNO STERN) Constipation Hemorrhoids Impingement syndrome of right shoulder Scoliosis Surgical History (Updated 10/19/21 @ 13:59 by Soumya Rodrigez MD) S/P colonoscopy S/P laparoscopy diagnostic S/P removal of ovarian cyst S/P shoulder surgery Social History Smoking/Tobacco Use Status: Never Smoking risk assessment performed?: Yes Alcohol Intake: current Alcohol Intake frequency: a few times a week Drug use: Occasionally Substance use type: marijuana Do you feel safe at home: Yes Do you feel safe in your relationship?: Yes
== END 2021-10-22 14:54 | disposition home or self-care (01) ==
LOC: ER 14:54 → DSU 15:32 → MS 17:34
PROVIDERS: Surgery; Admitting Provider Surgery; Emergency Provider Physician Assistant; PCP Nurse Practitioner; Visit Provider Surgery
PROC: 0DTJ4ZZ Resection of Appendix, Percutaneous Endoscopic Approach (ICD-10-PCS; CPT 44970; principal; 2021-10-19 14:15)
DX: K35.32 Acute appendicitis with perforation, localized peritonitis, and gangrene, without abscess (principal); R11.2 Nausea with vomiting, unspecified; K59.00 Constipation, unspecified; K64.9 Unspecified hemorrhoids
CPT/HCPCS: 44970; 36415; 80053; 81025; 83690; 85027; 87635; 96361; 96365; 96375; 99291; J1650; 74177; 81003; 81015; 85007; 85025; 88304; G0378; J1100; J1335; J1885; J2405

== ENCOUNTER 2021-12-10 00:30 | Outpatient (CLI) | payer BC, SELFPAY ==
--- NOTE | 2021-12-10 10:30 | DI.NM_ITS ---
Exam(s) NM BONE SCAN WHOLE BODY GRP EXAM: NM BONE SCAN WHOLE BODY GRP CLINICAL HISTORY: BONE LESION M89.9 F/U FROM CT. TECHNIQUE: Injected Dose: 25 mCi Tc-99m MDP Delayed Images: 2-3 hours. COMPARISON: CT UPPER ABD WITH CONTRAST (P) from 12/03/[address] ABDOMEN PELVIS W from 10/19/2021 FINDINGS: Symmetric axial uptake. Bilateral renal excretion is identified. No focal area of intense suspicious uptake is seen. There is no abnormal uptake seen in the left sacrum to correspond to the lesion seen on the CT scan. There is an S-type scoliosis of the thoracolumbar spine. There is symmetric uptake in the shoulders bilaterally likely reflecting degenerative changes. IMPRESSION: Unremarkable bone scan. No abnormal uptake is seen in the sacrum to correspond to the CT abnormality . DATA REPOSITORY:
== END 2021-12-10 00:50 ==
PROVIDERS: PCP Nurse Practitioner; Visit Provider Nurse Practitioner Family
DX: M89.8X8 Other specified disorders of bone, other site (principal)
CPT/HCPCS: 78306

== ENCOUNTER 2022-01-24 02:13 | Outpatient (CLI) | payer BC, SELFPAY ==
--- NOTE | 2022-01-24 13:45 | DI.MRI_ITS ---
Exam(s) MR UPPER JOINT LT WO EXAM: MR UPPER JOINT LT WO CLINICAL HISTORY: SUBACROMIAL IMPINGEMENT OF LT SHOULDER, M75.42 TECHNIQUE: Multiplanar multisequence MRI of the shoulder was performed. COMPARISON: MR MRI R UPPER JOINT WO CONT from 06/15/2018 CR XR PROF SHOULDER LEFT from 09/21/2021 FINDINGS: MARROW:There is no evidence of fracture, Hill-Sachs deformity, nor ominous osseous lesions. ROTATOR CUFF MECHANISM: AC JOINT/ACROMIUM: There mild degenerative changes in the AC joint. No prominent downgoing osteophyt es. Undersurface of the acromion is concave and there is no impinging hook at this level. No obviou s calcification noted in the coracoacromial ligament.. There is no evidence of os acromiale. Supraspinatus: There is some tendinitis/tendinosis signal evident in the supraspinatus. However, the re is a also an area of full-thickness tearing at the foot pad insertion on the greater tuberosity wi th fluid signal at this level traversing the tendon and also evident within the subacromial-subdeltoi d bursa. There is no retraction of the musculotendinous junction. There is no significant supraspin atus atrophy. Infraspinatus: Intact. No evidence of tear nor muscle atrophy. Teres Minor: Intact. No evidence of tear nor muscle atrophy. Subscapularis/anterior cuff: Intact. No abnormal signal at the level of the multipennate insertional fibers. No significant tear nor atrophy. BICEPS TENDON: Normally position in the intertubercular groove. No evidence of tear. No tenosynovitis. LABRUM: There is some fluid signal interposed between the superior labrum and osseous glenoid slightl y posterior to the biceps insertion. However, this is most probably the sublabral sulcus (as opposed to a true SLAP tear). The posterior labrum appears intact. Anterior labrum exhibits some regularit y. There is, however, no evidence of bony Bankart lesion. Inferior glenohumeral ligament is somewha t attenuated. Small amount of fluid noted in the inferior recess. GLENOHUMERAL JOINT: Small joint effusion. Minimal degenerative changes. Small joint effusion. No o bvious loose intra-articular bodies. No osteophytes. No degenerative subarticular cysts in the osse ous glenoid. QUADRILATERAL SPACE: No evidence of mass in the region of the axillary nerve and dorsal circumflex hu meral vessels. Visualized triceps muscle at this level appears unremarkable. IMPRESSION: 1. Main finding here is full-thickness tear of the supraspinatus foot pad insertional aspect at the l evel of the greater tuberosity. Fluid signal traverses the tendon at this level and there is also fl uid in the overlying subacromial-subdeltoid bursa. There is no retraction musculotendinous junction or atrophy of the supraspinatus muscle belly. Other 3 muscles of the rotator cuff mechanism are inta ct 2. Biceps tendon appears intact. No obvious labral tearing. No evidence of paralabral cyst. 3. Mild degenerative changes in the AC joint without downgoing osteophytes. Minimal degenerative joshua nges in the glenohumeral joint, also without osteophytes. DATA REPOSITORY:
== END 2022-01-24 02:33 ==
PROVIDERS: PCP Nurse Practitioner; Visit Provider Specialist
DX: M25.512 Pain in left shoulder (principal); M75.42 Impingement syndrome of left shoulder; M19.012 Primary osteoarthritis, left shoulder; M25.412 Effusion, left shoulder; M75.102 Unspecified rotator cuff tear or rupture of left shoulder, not specified as traumatic
CPT/HCPCS: 73221

== ENCOUNTER 2022-02-02 02:26 | Outpatient (CLI) | payer BC, SELFPAY ==
[2022-02-02 12:51] LABS: Source Nasal/Nares
[2022-02-02 16:31] LABS: COVID-19 PCR Negative (Negative)
== END 2022-02-02 02:27 | disposition home or self-care (01) ==
LOC: LBO 02:26
PROVIDERS: PCP Nurse Practitioner; Visit Provider Surgery
DX: Z20.822 Contact with and (suspected) exposure to COVID-19 (principal); Z01.818 Encounter for other preprocedural examination
CPT/HCPCS: 87635

== ENCOUNTER 2022-02-04 06:18 | Day surgery (SDC) | payer BC, SELFPAY ==
--- NOTE | 2022-02-03 16:04 | HPE_ITS ---
Documented by User: GUMARO Balbuena 02/03/22 16:12 Assessment and Plan Assessment and plan (1) Encounter for screening colonoscopy: Status: Acute Assessment and plan: The patient is here for Colonoscopy pre-op. Her last screening was in 2010 and was unremarkable. She has no family history of colon cancer. She has not had any bowel habit changes. Discussed possible complications of the procedure to include bleeding, pain, perforation, missed small lesion/polyp, sore throat, aspiration and adverse reaction to the medications. Questions were answered to patient?s satisfaction. No guarantees were implied or given. I spent minutes in reviewing the record, seeing the patient, providing patient education, answering patient's questions and documenting in the medical record. P// Colonoscopy with possible hemorrhoid banding under sedation. History of Present Illness History of Present Illness Chief Complaint: Screening Colonoscopy with possible hemorrhoid banding Narrative: 56 y/o female with history of Constipation and hemorrhoids presents for colonoscopy with possible hemorrhoid banding. Patient's last Colonoscopy was in 2010 which was unremarkable.? She denies a family history of colon cancer. She denies any changes in bowel habits including bloody or black tarry stools, abdominal pain, diarrhea or constipation. She denies constitutional symptoms. Denies use of marijuana or any other recreational or illegal drugs. She denies chest pain, palpitations, dyspnea or dyspnea with exertion. She denies prior history or family history of adverse reactions or complications with anesthesia. Patient underwent laparoscopic appendectomy on 10/19. The patient denies any history of stroke, SD, seizures, bleeding or clotting disorders. She denies having any implanted metal in her body. PFS All Active Problems Encounter for screening colonoscopy (Acute) S/P laparoscopic appendectomy (Acute) Medical History Constipation Hemorrhoids Impingement syndrome of right shoulder Scoliosis Surgical History Hx of appendectomy S/P colonoscopy S/P laparoscopy diagnostic S/P removal of ovarian cyst S/P shoulder surgery Social History Smoking/Tobacco Use Status: Never Smoking risk assessment performed?: Yes Alcohol Intake: current Alcohol Intake frequency: a few times a week Drug use: Occasionally Substance use type: marijuana Details: Last used 02/02/22 1800. Do you feel safe at home: Yes Do you feel safe in your relationship?: Yes Meds Allergies and Home Medications Allergies Allergy/AdvReac Type Severity Reaction Status Date / Time Penicillins Allergy Mild Verified 02/04/22 06:38 Sulfa (Sulfonamide AdvReac Intermediate Diarrhea Unverified 02/04/22 06:38 Antibiotics) Home Medications Medication Instructions Recorded Confirmed Type multivitamin (Daily Multi-Vitamin) 1 tab PO DAILY 10/02/20 02/04/22 History psyllium husk 3.4 gram/5.4 gram 1 tsp PO DAILY 10/02/20 02/04/22 History oral powder (Metamucil) B6 0.85 mg-folic 200 1 tab PO DAILY 10/04/21 02/03/22 History mva-V67-akxvbvL90-rhteql-ztymrbgowsju oral chewable tablet (Neuriva Plus) lactobacillus combination no.9 4 4,000 mmu cells PO DAILY 10/04/21 02/04/22 History billion cell capsule (Adult 50 Plus Probiotic) B6 1.7 mg-folic 400 mcg-B12 2.4 cap PO DAILY 02/04/22 History njj-sqlhke-xwulbimwcrhy oral capsule (Neuriva Plus Brain Performance) Exam Const General: cooperative, healthy appearing and comfortable Orientation: alert and oriented x3 Resp Effort & Inspection: normal respiratory effort, no audible wheezes and no cough Auscultation: clear to auscultation bilaterally GI Inspection: normal to inspection Palpation: soft, no guarding and nontender Auscultation: normal bowel sounds Skin General skin exam: no rashes or lesions noted Documented by User: Debra Downey DO 02/04/22 07:37 Assessment and Plan Assessment and plan (1) Encounter for screening colonoscopy: Status: Acute Assessment and plan: The patient is here for Colonoscopy pre-op. Her last screening was in 2010 and was unremarkable. She has no family history of colon cancer. She has not had any bowel habit changes. Discussed possible complications of the procedure to include bleeding, pain, perforation, missed small lesion/polyp, sore throat, aspiration and adverse reac tion to the medications. Questions were answered to patient?s satisfaction. No guarantees were implied or given. We will also do a hemorrhoid banding if she has any internal hemorrhoids I spent minutes in reviewing the record, seeing the patient, providing patient education, answering patient's questions and documenting in the medical record. P// Colonoscopy with possible hemorrhoid banding under sedation. History of Present Illness Narrative: 56 y/o female with history of Constipation and hemorrhoids presents for colonoscopy with possible hemorrhoid banding. Patient's last Colonoscopy was in 2010 which was unremarkable.? She denies a family history of colon cancer. She denies any changes in bowel habits including bloody or black tarry stools, abdominal pain, diarrhea or constipation. She denies constitutional symptoms. Denies use of marijuana or any other recreational or illegal drugs. She denies chest pain, palpitations, dyspnea or dyspnea with exertion. She denies prior history or family history of adverse reactions or complications with anesthesia. Patient underwent laparoscopic appendectomy on 10/19. The patient denies any history of str, seizures, bleeding or clotting disorders. She denies having any implanted metal in her body. She still gets her periods but they are very irregular. Since her appendectomy her bowels have been very irregular adn struggles w/ cosntipation, She takes emtamucil daily. She has beenon this for yrs. Still has problems w/ irreglarity and he,orrhoids. no abdominal pain or nausea. No bleeding. no CP/sob. no cough/fevers, no problems w/anesthesia We reviewed the procedures and risks of the hemorrhoid ending and she would like to proceed with this. Review of Systems All systems reviewed & are unremarkable except as noted in HPI and below PFSH All Active Problems Encounter for screening colonoscopy (Acute) S/P laparoscopic appendectomy (Acute) Medical History Constipation Hemorrhoids Impingement syndrome of right shoulder Scoliosis Surgical History Hx of appendectomy S/P colonoscopy S/P laparoscopy diagnostic S/P removal of ovarian cyst S/P shoulder surgery Social History Smoking/Tobacco Use Status: Never Smoking risk assessment performed?: Yes Alcohol Intake: current Alcohol Intake frequency: a few times a week Drug use: Occasionally Substance use type: marijuana Details: Last used 02/02/22 1800. Do you feel safe at home: Yes Do you feel safe in your relationship?: Yes Meds Allergies and Home Medications Allergies Allergy/AdvReac Type Severity Reaction Status Date / Time Penicillins Allergy Mild Verified 02/04/22 06:38 Sulfa (Sulfonamide AdvReac Intermediate Diarrhea Unverified 02/04/22 06:38 Antibiotics) Home Medications Medication Instructions Recorded Confirmed Type multivitamin (Daily Multi-Vitamin) 1 tab PO DAILY 10/02/20 02/04/22 History psyllium husk 3.4 gram/5.4 gram 1 tsp PO DAILY 10/02/20 02/04/22 History oral powder (Metamucil) B6 0.85 mg-folic 200 1 tab PO DAILY 10/04/21 02/03/22 History wok-B85-gosadqW23-dhxlwl-cjlpfuctmxsu oral chewable tablet (Neuriva Plus) lactobacillus combination no.9 4 4,000 mmu cells PO DAILY 10/04/21 02/04/22 History billion cell capsule (Adult 50 Plus Probiotic) B6 1.7 mg-folic 400 mcg-B12 2.4 cap PO DAILY 02/04/22 History riq-afysvn-onwqjckyvdry oral capsule (Neuriva Plus Brain Performance) Exam Narrative Exam Narrative: PHYSICAL EXAM GENERAL APPEARANCE: Alert, healthy appearance, oriented, in no acute distress SKIN: No rashes.? No breakdown HYDRATION: Well hydrated HEAD, EYES, EARS, NECK, THROAT: Head is normocephalic, pupils equal, round, reactive to light and accommodation, ocular movement intact, sclera clear and no jaundice. ?Dentition intact. No sore throat.? No jaw pain. NECK: Supple, Trachea midline. No JVD. LUNGS: normal respiration/nl chest excursion. ?Clear to auscultation B/l no R/R/W ?HEART: Regular rate and rhythm, EXTREMITY: No edema or cyanosis? no leg pain, redness, swelling.? No IV infiltration ABDOMEN: non tender to palpation, no masses or distention, no hernias. Normal bowel sounds NEURO: no focal neuro deficits. ?
[2022-02-04 06:31] VITALS: BP 120/77; PULSE 97; RESP 16; TEMP 36.2; O2SAT 98
[2022-02-04] MEDS: Scopolamine 1 MG/3 DAYS PATCH TD (06:43)
--- NOTE | 2022-02-04 06:50 | W.ANESPRE ---
General Info Date of Service Date Performed: 02/04/22 Height: 5 ft 8 in Weight: 55.9 kg Body Mass Index (BMI): 18.7 Surgical Procedure: Operation Date: 02/04/22 07:35 Proposed Procedure Side Surgeon p Colonoscopy w/ Hemorrhoid Banding Debra Downey, DO Meds Allergies and Home Medications Allergies Allergy/AdvReac Type Severity Reaction Status Date / Time Penicillins Allergy Mild Verified 02/04/22 06:38 Sulfa (Sulfonamide AdvReac Intermediate Diarrhea Unverified 02/04/22 06:38 Antibiotics) Home Medication Medication Instructions Recorded multivitamin (Daily Multi-Vitamin) 1 tab PO DAILY 10/02/20 psyllium husk 3.4 gram/5.4 gram 1 tsp PO DAILY 10/02/20 oral powder (Metamucil) B6 0.85 mg-folic 200 1 tab PO DAILY 10/04/21 [id number]-ascpgzV84-hlbtjs-argrbabkvkhp oral chewable tablet (Neuriva Plus) lactobacillus combination no.9 4 4,000 mmu cells PO DAILY 10/04/21 billion cell capsule (Adult 50 Plus Probiotic) B6 1.7 mg-folic 400 mcg-B12 2.4 cap PO DAILY 02/04/22 rfs-anggsq-ahaxvfwbgxhu oral capsule (Neuriva Plus Brain Performance) Current Visit Medications: Current Medications Generic Name Dose Route Start Last Admin Trade Name Deana PRN Reason Stop Dose Admin Ringer's Solution 1,000 mls @ 80 mls/hr 02/04/22 06:00 IV 03/05/22 23:59 INFUSION JAMSHID Ringer's Solution 1,000 mls @ 80 mls/hr 02/04/22 06:00 IV 03/05/22 23:59 INFUSION JAMSHID IV Miscellaneous Supplies 1 each 02/04/22 06:00 Iv Access IV 03/05/22 23:59 DIRECTED JAMSHID IV Miscellaneous Supplies 1 each 02/04/22 06:00 Iv Access IV 03/05/22 23:59 DIRECTED JAMSHID Ondansetron HCl 4 mg 02/04/22 06:00 Ondansetron 4 Mg/2 Ml Vial IVP 02/04/22 18:00 PREOP JAMSHID Scopolamine HBr 1 mg 02/04/22 06:00 02/04/22 06:43 Scopolamine 1 Mg/3 Days Patch TD 02/04/22 23:59 1 mg PREOP JAMSHID Administration Sodium Chloride 0 ml 04/15/22 06:00 Normal Saline Flush 10 Ml Syr IV 03/05/22 23:59 PRN PRN Sodium Chloride 0 ml 02/04/22 06:00 Normal Saline 10 Ml Vial IJ 03/05/22 23:59 DIRECTED PRN Sodium Chloride 0 ml 02/04/22 06:00 Normal Saline Flush 10 Ml Syr IV 03/05/22 23:59 PRN PRN Sodium Chloride 0 ml 02/04/22 06:00 Normal Saline 10 Ml Vial IJ 03/05/22 23:59 DIRECTED PRN Sterile Water 0 ml 02/04/22 06:00 Water,Injection,Sterile 10 Ml Vial IJ 03/05/22 23:59 DIRECTED PRN Sterile Water 0 ml 02/04/22 06:00 Water,Injection,Sterile 10 Ml Vial IJ 03/05/22 23:59 DIRECTED PRN PFSH Active Problems Active Problems: Problem Status Onset Code Encounter for screening colonoscopy Z12.11 S/P laparoscopic appendectomy Z90.49 Medical History Medical History Constipation Hemorrhoids Impingement syndrome of right shoulder Scoliosis Surgical History Surgical History Hx of appendectomy S/P colonoscopy S/P laparoscopy diagnostic S/P removal of ovarian cyst S/P shoulder surgery Tobacco Smoking/Tobacco Use Status: Never Alcohol Alcohol Intake: current Alcohol intake frequency: a few times a week Substance Use Substance use: Occasionally Substance use type: marijuana Details: Last used 02/02/22 1800. Vital Signs and Lab Results Vital Signs Most Recent Vital Signs in EMR: Most Recent Vital Signs Temp Pulse Resp BP Pulse Ox 36.2 C L 97 H 16 120/77 98 02/04/22 06:31 02/04/22 06:31 02/04/22 06:31 02/04/22 06:31 02/04/22 06:31 Lab Results Blood Type / Crossmatch: No Data to Display Complete Blood Count: No Data to Display Complete Metabolic Panel: No Data to Display Liver Function Panel: No Data to Display Coagulation Panel: No Data to Display Cardiac Panel: No Data to Display Arterial Blood Gas: No Data to Display Venous Blood Gas: No Data to Display Pancreas Panel: No Data to Display Thyroid Panel: No Data to Display Infectious Disease: Coronavirus (COVID-19)(PCR) Negative (Negative) 02/02/22 08:42 02/02/22 Coronavirus 2019 Source Nasal/Nares 02/02/22 08:42 02/02/22 Blood Cultures: No Data to Display Toxicology Panel: No Data to Display Panel: No Data to Display Anesthesia Assessment and Plan Anesthesia History Personal History: PONV Family History: No Family History of Anesthesia Complications Exercise Tolerance Exercise Tolerance: Metabolic Equivalents>4 Pertinent Negatives Pertinent Negatives: No Symptoms of GERD, No Major Cardiovascular Symptoms or Complaints, No Major Pulmonary Symptoms or Complaints and No History of CVA/TIA Cardiac & Pulmonary Exam Cardiac Exam: Normal S1/S2 Heart Sounds Pulmonary Exam: Clear Bilateral Breath Sounds Implantable Cardiac Device Does patient have a Pacemaker or an ICD?: No Airway Exam Known Difficult Airway: No Mallampati Class: 3 Mouth Opening: Normal (> 3cm) Thyromental Distance: Greater than 3 cm Neck Range of Motion: Full ROM Neck Circumference: Normal Teeth Condition: Normal Dentition (Permanent retainer behind lower teeth) and Loose or Chipped (Lower left chip) ASA Classification ASA Score: ASA 2 Emergency Case?: No NPO Status NPO Status: NPO Clears >2 hours, Solids >8 hours Status Status: Not Per Patient Anesthesia Plan Resuscitation Status: Full Code Anesthesia Technique: General Anesthesia Airway Planned: Natural Airway Monitors Used: Standard Monitors
[2022-02-04] MEDS: Lactated Ringers 1,000 ML 80 ML IV (06:51)
[2022-02-04 06:55] VITALS: BMI 18.7
[2022-02-04] MEDS: Normal Saline Flush 10 ML SYR IV (07:07)
[2022-02-04] MEDS: Ondansetron 4 MG/2 ML VIAL IVP (07:07)
--- NOTE | 2022-02-04 08:06 | HEM_PTH ---
PATIENT: Reny Smith LOC: [facility] U#:[id number] AGE/SX: 56/F ROOM: RE02/04/[address]: Debra Downey : 1965 BED: DIS: 02/04/2022 SPEC #: [id number] RECD: 02/04/22 12:37 STATUS: HENRY REQ #: [id number] ADRY: 02/04/22 08:[address]: Debra Downey DEPT: Surgical Specimen RECD BY: Maricel Silva ENTERED: 02/04/22 12:38 SP TYPE: Hem OTHR DR: Erika Adams Tissues: 1 - HEMORRHOIDS Procedures: GROSS AND MICRO LEVEL 3 Comments: [id number]
[2022-02-04 08:25] VITALS: BP 102/64; PULSE 85; RESP 14; TEMP 36.6; O2SAT 99
--- NOTE | 2022-02-04 08:26 | W.ANESPOSTOP ---
Postoperative Evaluation Date, Time and Location Date Performed: 02/04/22 Time Performed: 08:26 Patient Location: Day Surgery Unit Vital Signs Most Recent Imported Vital Signs: Most Recent Vital Signs Temp Pulse Resp BP Pulse Ox 36.2 C L 97 H 16 120/77 98 02/04/22 06:31 02/04/22 06:31 02/04/22 06:31 02/04/22 06:31 02/04/22 06:31 Pain Score Most Recent Pain Score: Most Recent Pain Score Pain Level 0 02/04/22 06:31 Assessment Mental Status: Awake (Alert & Oriented to Patient Baseline) Airway and Respiratory Function: Patent airway with normal (patient baseline) respiratory exam Cardiovascular Function: Hemodynamically Stable Hydration Status: Adequately Hydrated Nausea & Vomiting: No Nausea or Vomiting Pain: Pt. Denies Any Pain Peripheral Nerve Block: Patient did not receive a nerve block
[2022-02-04] MEDS: Ketorolac 15 MG/ML VIAL IVP (08:51)
[2022-02-04] MEDS: Cyclobenzaprine 10 MG TAB PO (08:55)
--- NOTE | 2022-02-04 08:56 | W.PM.OP ---
Date of service: 02/04/22 Time of Service: 08:56 Operative Note Operative Note DATE OF PROCEDURE: 02/04/22 PRE-OP DIAGNOSIS: CRC screen/hemorrhand banding POST-OP DIAGNOSIS: same SURGEON: Debra Downey ANESTHESIA TYPE: General:No Airway Refer to Anesthesia Record ESTIMATED BLOOD LOSS: 1 PATHOLOGY: other Patient was transported to: same day Patient's condition: stable Indications: mirala prep/9 minutes retraction Procedure Description: After informed consent was obtained the patient was taken to the procedure room and placed in a left decubitous position. Monitors were applied and a time out was done. The patients name, date of , procedure, allergies to medications and metal in their body was reviewed. The patient was then sedated. Once sedated and comfortable a rectal exam was done. External exam was normal x3 quadrants/not thrombosed. Internal exam revealed a normal sphincter tone and x3 masses. The scope was then introduced and retrofelexed. x3 lg internal hemorrhoidal tags. The scope was then advanced to the cecum w/ mild difficulty. The TI and appendiceal orifice were identified. The prep was made BPS 3 in all quadrants for total of 9. From The scope was then slowly retracted over 9 mins the colon is very tortuous and redundant. She does make very sharp corners has hepatic and splenic flexures. there are no polyps, AVMs, or diverticula visualized. She has 3 large internal hemorrhoidal remnants left. These are too large to apply a rubber banc. These are removed with a hot snare and then the stumps were banded. There is no bleeding noted. There are the scope was removed and the patient was woken up and taken back to Same day surgery in stable condition. The patient tolerated the procedure well and there were no immediate complications. Follow up: The patient should follow up in 10 years unless they develop changes in bowel habits or other new gastrointestinal complaints.
[2022-02-04] MEDS: Dibucaine 1% 28 GM TUBE PR (08:57)
--- NOTE | 2022-02-04 09:05 | W.PM.DSUDISC ---
Discharge Plan Disposition Patient Disposition: HOME Condition: Good Discharge Details Reason For Visit: colon scope Attending Provider: Debra Downey Primary Care Provider: Erika Adams Home Meds and New Rx's Prescriptions: New dibucaine 1 % ointment 1 applic [place] QID PRNQty: 56 3RF cyclobenzaprine 5 mg tablet 5 mg PO TID PRN (Reason: muscle spasm) Qty: 30 0RF tramadol [Ultram] 50 mg tablet 50 mg PO Q6H PRNQty: 14 0RF Continued Adult 50 Plus Probiotic 4 billion cell capsule 4,000 mmu cells PO DAILY 0RF Rx Instructions: administer with a meal Neuriva Plus 0.85 mg-200 mcg-1.2 mcg tablet,chewable 1 tab PO DAILY 0RF Metamucil 3.4 gram/5.4 gram powder 1 tsp PO DAILY 0RF Rx Instructions: mix into at least 4 oz water or juice before administering multivitamin [Daily Multi-Vitamin] Tablet 1 tab PO DAILY 0RF Neuriva Plus Brain Performance 1.7 mg-400 mcg- 2.4 mcg Capsule PO DAILY 0RF Discharge Instructions Additional Instructions: ? MEDICATIONS: Alternate Tylenol 1000mg by mouth every 8 hours and Ibuprofen 600mg every 6 hours. ?Make sure you take ibuprofen with food and not on an empty stomach. ?Take the Tylenol and ibuprofen continuously for the first 72hrs- not just when you have pain.? Use the tramadol for breakthrough pain.? Use ICE!?? Twenty minutes on, and then off, continuously for the first 72hours. If you are taking narcotic pain medication, follow the instructions on the label and do not drive. Pain medications can make you very constipated. Make sure you are moving your bowels daily, take a dose of Miralax. Home Care Instructions after Rectal Surgery Pain control:? Ibuprofen 600mg 6hrs (take w/ food. Do not take on an empty stomach) and Tylenol 1000mg by mouth (ibuprofen 400-600mg) every 8 hours.? Do not take if you have ulcers or sensitivity to aspirin.? Do not take Tylenol if you have hepatitis or liver failure. Alternate the Tylenol and ibuprofen.? Take pain meds continuously for the first 72hrs.? After 72hrs, you can take as needed if you are having pain.? ? How to prevent constipation: The first bowel movement after surgery will be painful. Do not let yourself get constipated. Stay on a stool softener for the first two weeks after surgery. ?It is recommended that you use a fiber supplement (Metamucil, Citrucel) daily (1 tablespoon in 8 oz of water). If you do not have a bowel movement daily, use Miralax. ? You may have bleeding or drainage after rectal surgery; especially when you move your bowels. Use a sanitary napkin to collect the discharge. If you are passing large clots or having to change the pad more than every 4 hours, call the clinic or go to the ER. You may experience spasms in the rectal muscles. This is normal after surgery and last for about two weeks. They can become more intense with bowel movements. The best remedy is to soak in a bathtub of plain warm water- no Epsom salts, essential oil or soap.? It takes about 10 minutes further the spasm to stop.? You may want to do this after BM as well. It is ok to shower. Avoid soap on the surgical area. Use a pillow to sit on. Follow a mild bland diet. Avoid alcohol, spicy food, citrus, and tomatoes. Avoid strenuous activity (running, jogging, and power walking, swimming, weight lifting) for two weeks. No lifting over 20 pounds for 2 weeks. Activity:: see above Diet:: As Tolerated Discharge Orders Discharge Orders: Discharge Order (Routine); Ordered 02/04/22 Ordered By: Debra Downey DS: Diagnosis Discharge Diagnosis (1) Encounter for screening colonoscopy: Status: Acute
[2022-02-04 09:20] VITALS: BP 123/79; PULSE 75; RESP 18; TEMP 36.6; O2SAT 100
[2022-02-04 09:25] VITALS: BP 111/69; PULSE 79; RESP 15; TEMP 36.7; O2SAT 99
[2022-02-04] MEDS: MORPHine 10 MG/ML VIAL IVP (09:50)
[2022-02-04 09:52] VITALS: BP 110/65; PULSE 64; RESP 15; TEMP 36.7; O2SAT 100
== END 2022-02-04 10:45 | disposition home or self-care (01) ==
PROVIDERS: PCP Nurse Practitioner; Visit Provider Surgery
PROC: 0DJD8ZZ Inspection of Lower Intestinal Tract, Via Natural or Artificial Opening Endoscopic (ICD-10-PCS; CPT 45378; principal; 2022-02-04 07:30)
DX: Z12.11 Encounter for screening for malignant neoplasm of colon (principal); K64.8 Other hemorrhoids; K62.0 Anal polyp
CPT/HCPCS: 45385; 45398; 88304; J1200; J1885; J2001; J2270; J2405; J2704

== ENCOUNTER → 2023-08-07 02:16 | Outpatient (CLI) | payer BC, SELFPAY ==
--- NOTE | 2023-08-07 | DI.MAMMO_ITS ---
Exam(s) MAMMO SCREENING EXAM: MAMMO SCREENING CLINICAL HISTORY: SCREENING, Z12.39 TECHNIQUE: Bilateral full field digital CC and MLO mammographic images were obtained with 3D tomosyn thesis and utilizing computer aided detection (CAD). COMPARISON: Available for comparison. FINDINGS: Masses/Architectural Distortion: None seen. Microcalcifications: No suspicious pleomorphic-type are seen. Skin Thickening/Nipple Retraction: None. IMPRESSION: 1. No significant interval change with no specific features of malignancy noted. 2. Unless there is more urgent need, screening mammography is recommended, as per [employer] guidelines. BI-RADS Category 1 - Negative Breast Density - Category C - Heterogeneously dense Breast density category C or D implies that the patient has dense breast tissue. Dense breast tissue is very common and is not abnormal but dense breast tissue can make it harder to find cancer on a ma mmogram. Also, dense breast tissue may increase their breast cancer risk. This information about the result of the mammogram report was provided to the patient to raise their awareness. Use this report when you speak with the patient about their risks for breast cancer, which includes their family hist ory. At that time, you may recommend for more screening tests (Ultrasound or MRI) as they might be us eful based on their risk. A negative radiographic report should not delay biopsy if a dominant or clinically suspicious mass is present. Up to ten percent of cancers are not identified on mammography. A negative report may reinforce clinical impression. Adenosis and dense breasts may obscure an underlying neoplasm. False positive reports average 6 to 10%. Patient will receive a letter notifying them of these results.
== END ==
PROVIDERS: PCP Nurse Practitioner; Visit Provider Family Medicine
DX: Z12.31 Encounter for screening mammogram for malignant neoplasm of breast (principal)
CPT/HCPCS: 77063; 77067

== ENCOUNTER 2024-06-13 02:44 | Outpatient (CLI) | payer BC, SELFPAY ==
--- NOTE | 2024-06-13 | DI.DEXA_ITS ---
Exam(s) XR DEXA BONE DENSITY W/WO DELMA EXAM: XR DEXA BONE DENSITY W/WO DELMA CLINICAL HISTORY: SCREENING FOR OSTEOPOROSIS, Z13.820 TECHNIQUE: COMPARISON: No exams were available for comparison FINDINGS: Lateral Spine Image: Unremarkable. No compression deformities identified. Left hip: Total T-Score: -1.5 Total Z-Score: -0.7 T- and Z-scores: Findings are consistent with osteopenia. Lumbar Spine: Total T-Score: -1.7 Total Z-Score: -0.6 T- and Z-scores: Findings are consistent with osteopenia. IMPRESSION: No evidence of osteoporosis.
== END 2024-06-13 03:04 ==
LOC: DI 02:44
PROVIDERS: Visit Provider Nurse Practitioner Family
DX: Z13.820 Encounter for screening for osteoporosis (principal)
CPT/HCPCS: 77080

== ENCOUNTER 2024-08-08 01:03 | Outpatient (CLI) | payer BC, SELFPAY ==
--- NOTE | 2024-08-08 07:47 | DI.MAMMO_ITS ---
Exam(s) MAMMO SCREENING EXAM: MAMMO SCREENING CLINICAL HISTORY: SCREENING MAMMO Z12.39 TECHNIQUE: Bilateral full field digital CC and MLO mammographic images were obtained with 3D tomosyn thesis and utilizing computer aided detection (CAD). COMPARISON: Available for comparison. FINDINGS: Masses/Architectural Distortion: None seen. Microcalcifications: No suspicious pleomorphic-type are seen. Skin Thickening/Nipple Retraction: None. IMPRESSION: 1. No significant interval change with no specific features of malignancy noted. 2. Unless there is more urgent need, screening mammography is recommended, as per [employer] guidelines. BI-RADS Category 1 - Negative Breast Density - Category C - Heterogeneously dense Breast density category C or D implies that the patient has dense breast tissue. Dense breast tissue is very common and is not abnormal but dense breast tissue can make it harder to find cancer on a ma mmogram. Also, dense breast tissue may increase their breast cancer risk. This information about the result of the mammogram report was provided to the patient to raise their awareness. Use this report when you speak with the patient about their risks for breast cancer, which includes their family hist ory. At that time, you may recommend for more screening tests (Ultrasound or MRI) as they might be us eful based on their risk. A negative radiographic report should not delay biopsy if a dominant or clinically suspicious mass is present. Up to ten percent of cancers are not identified on mammography. A negative report may reinforce clinical impression. Adenosis and dense breasts may obscure an underlying neoplasm. False positive reports average 6 to 10%. Patient will receive a letter notifying them of these results.
== END 2024-08-08 01:23 ==
LOC: DI 01:03
PROVIDERS: Visit Provider Nurse Practitioner Family
DX: Z12.31 Encounter for screening mammogram for malignant neoplasm of breast (principal)
CPT/HCPCS: 77063; 77067